=== PATIENT | female | born 1940 | race Caucasian/White ===

== ENCOUNTER → 2020-06-22 16:22 | Outpatient (BNVA) | payer MEDICARE, OTHER, SELFPAY | PROVIDERS: PCP Family Medicine; Referring Provider Family Medicine; Visit Provider Student in an Organized Health Care Education/Training Program | DX: L40.50 Arthropathic psoriasis, unspecified (principal); M70.61 Trochanteric bursitis, right hip; Z79.899 Other long term (current) drug therapy | CPT/HCPCS: 20610; 99213 ==

== ENCOUNTER → 2021-01-25 16:20 | Outpatient (BNVA) | payer MEDICARE, OTHER, SELFPAY | PROVIDERS: PCP Family Medicine; Visit Provider Student in an Organized Health Care Education/Training Program | DX: L40.50 Arthropathic psoriasis, unspecified (principal); M70.62 Trochanteric bursitis, left hip | CPT/HCPCS: 20610; 99212 ==

== ENCOUNTER → 2021-06-21 13:19 | Outpatient (BNVA) | payer OTHER, SELFPAY | PROVIDERS: PCP Family Medicine; Visit Provider Nurse Practitioner Family ==

== ENCOUNTER → 2021-11-07 10:06 | Outpatient (BNVA) | payer OTHER, SELFPAY | PROVIDERS: PCP Family Medicine; Visit Provider Nurse Practitioner Family ==

== ENCOUNTER → 2022-10-03 14:02 | Outpatient (BNVA) | payer OTHER, SELFPAY | PROVIDERS: Visit Provider Nurse Practitioner Family | DX: Z13.89 Encounter for screening for other disorder (principal) ==

== ENCOUNTER 2023-06-03 14:48 | Outpatient (AMB) | payer OTHER, SELFPAY ==
--- NOTE | 2023-06-03 15:18 | MHC.OFFVIS ---
Intake Vital Signs 06/03/23 15:30 Height 5 ft 5 in Weight 161 lb 2.526 oz BMI 26.8 BP 150/100 H Blood Pressure Location Lt brachial Position Sitting Pulse 86 Pulse Source Pulse Oximeter Temp 97.7 F Temp Source Skin Pulse Oximetry (%) 97 Oxygen Delivery Method Room Air Intake Visit Reasons: PSA Intake Note: Patient presents today for PsA follow up. Patient reports she has been at [facility] 3 times since her last visit in October. 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: No Accompanied by: Self / Same As Patient Allergies acetaminophen [Percocet] Allergy (Unknown, Verified 06/03/23 15:18) Hives oxycodone [Percocet] Allergy (Unknown, Verified 06/03/23 15:18) Hives penicillin V Allergy (Unknown, Verified 06/03/23 15:18) Hives sulfacetamide Allergy (Unknown, Verified 06/03/23 15:18) Hives Codeine Phosphate Allergy (Unknown, Uncoded 06/03/23 15:18) Hives Darvocet-N 50 Allergy (Unknown, Uncoded 06/03/23 15:18) Hives latex Allergy (Unknown, Uncoded 06/03/23 15:18) swelling Medication List - Last Reconciled 06/03/23 by Neville Us MD apixaban (Eliquis) 5 mg PO BID aspirin (Alfonzo Aspirin) 325 mg PO DAILY calcium carbonate (Calcium) 600 mg PO DAILY dronedarone (Multaq) 400 mg PO BID etanercept (Enbrel SureClick) 50 mg subcut QWEEK ezetimibe 10 mg PO DAILY ferrous sulfate (Iron (ferrous sulfate)) 325 mg PO DAILY leflunomide 20 mg PO DAILY levothyroxine 125 mcg PO DAILY losartan 50 mg PO DAILY meclizine 12.5 mg PO DAILY metoprolol tartrate 75 mg PO DAILY multivitamin 1 tab PO DAILY omeprazole 40 mg PO BID simvastatin 40 mg PO DAILY trazodone 50 mg PO BEDTIME vitamin B complex (B Complex-Vitamin B12 tablet) 1 tab PO DAILY HPI HPI Comments History of Present Illness Details The patient returns for evaluation of her psoriatic arthritis. She had been on leflunomide for years and has remained at 20 mg daily. The Enbrel was held last year while she had surgery for a skin cancer but it was restarted again this summer. She thinks it is helping to some degree. She has had further problems with poorly controlled blood pressure and atrial fibrillation for which she sees Cardiology up in [place]. She did have some lab work done last week. She does not think she has had any side effects with her medications. [facility] Medical History Atrial fibrillation Hyperlipidemia Hypertension Hypothyroidism Psoriatic arthritis Surgical History History of thyroid surgery Hx of appendectomy Hx of basal cell carcinoma excision Hx of hysterectomy Hx of tonsillectomy Knee joint replacement status Social History Alcohol intake: never Patient Tobacco Use Status: Former Tobacco user Years Smoked: 15 Review of Systems Const Details: Negative for appetite change, weight change, fever, chills, malaise and fatigue Eyes Details: Negative for vision change, dry eyes,headaches and dizziness ENT Details: Occasional episodes of vertigo, decreased hearing and tenderness in the right ear probably related to old head trauma. The symptoms seem stable.Negative for hearing change, oral ulcer, nose bleeds and oral dryness. Card Details: Occasional palpitation attributed to atrial fibrillation. Recently diuretic was added and losartan increased to control her blood pressure.Negative chest pain, edema and syncope Resp Details: Negative for SOB, cough and wheezing GI Details: Negative indigestion/heartburn, nausea, abdominal pain, bowel changes, diarrhea, constipation and bloody stool. Skin/Breast Details: Negative for itching, rash, hives, Raynaud's symptoms, sun sensitivity, and skin cancer Jalen/Lymph Details: Negative for excessive bruising or bleeding. Physical Exam Vital Signs: Last Vital Signs Temp 97.7 F 06/03/23 15:30 Pulse 86 06/03/23 15:30 BP 150/100 H 06/03/23 15:30 Pulse Ox 97 06/03/23 15:30 Oxygen Delivery Method Room Air 06/03/23 15:30 BMI result Body Mass Index 26.8 APPEARANCE: Patient in no acute distress EYES no redness, pupils equal and reactive to light, eyelids normal EXTREMITIES: No edema, no calf tenderness, normal peripheral pulses. SKIN: Depressed healed scar on the right tip of the nose. No evidence of active psoriasis noted on exam. JOINT EXAM:?? Cervical Spine: Some decrease in the range of lateral flexion and rotation but without pain; no tenderness. Thoracic Spine:? No scoliosis. No tenderness on palpation. Lumbar Spine:? Alignment normal.? Full range of motion without pain, no tenderness. Hands: LEFT? Normal pain-free range of motion. mild bony enlargement at the PIP and the IP joints. This is more prominent at the PIP regions. The MCPs have no tenderness or swelling. there is no sensory loss or thenar atrophy.. RIGHT: Normal range of motion. Bony enlargement Without tenderness of the PIP and DIP joints. There is some slight enlargement at the MCPs without tenderness. no thenar atrophy or sensory loss.. Wrists:? Normal pain-free range of motion without tenderness, swelling, increased warmth or erythema. Elbows: Normal pain-free range of motion without tenderness, swelling, increased warmth or erythema. Shoulders:? LEFT: Full range of motion without pain. No tenderness, weakness, swelling, increased warmth or erythema. RIGHT: Limited range of motion above 90 degrees with flexion and abduction. Able to complete internal rotation without pain. Previous rotator cuff surgery on this arm. No tenderness, swelling, increased warmth erythema. Hips: Left: Slight lateral and anterior pain with extremes of external rotation or abduction. No groin tenderness or mass. Right: Normal pain-free range of motion without tenderness. Hip bursa:.? No tenderness. Knees: LEFT: Normal pain-free range of motion without tenderness, swelling, increased warmth or erythema.? There is no effusion or crepitation. Healed arthroplasty scar. RIGHT: Normal pain-free range of motion without tenderness, swelling, increased warmth or erythema. No effusion noted. Positive for crepitus. Ankles: Normal pain-free range of motion without tenderness, swelling, increased warmth or erythema. Feet: LEFT: Normal pain-free range of motion. There is slight tenderness to palpation across MTPs. No swelling, increased warmth or erythema. RIGHT: Normal pain-free range of motion. Tenderness to palpation across MTPs. No swelling, increased warmth or erythema. 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 Enbrel: 09/2018- January 2022- on Hold due to concerning skin lesion. Leflunomide: December 2020 to present. Code(s): L40.50 - Arthropathic psoriasis, unspecified Plan She has some longstanding findings of osteoarthritis in the hands but no activity of the psoriatic arthritis is apparent on exam today. Additionally there is no psoriasis seen. She seems to be tolerating these medications and did feel the addition of Enbrel was helpful so I think it can be continued. We did review that it was immunosuppressive and that she should stop it event of infection. She had lab work done in late May that was okay so I think she is good to have another set done in September. I printed out some lab slips for her to take to the hospital in [place]. A follow-up at 4 months seems reasonable. Orders: Orders C Reactive Protein Today D84.821 - Immunodeficiency due to drugs, L40.50 - Arthropathic psoriasis, unspecified, Z79.899 - Other ocean transportation intermediary (current) drug therapy Aspartate Amino Transferase Today D84.821 - Immunodeficiency due to drugs, L40.50 - Arthropathic psoriasis, unspecified, Z79.899 - Other ocean transportation intermediary (current) drug therapy Complete Blood Count Auto Diff Today D84.821 - Immunodeficiency due to drugs, L40.50 - Arthropathic psoriasis, unspecified, Z79.899 - Other penitentiary (current) drug therapy Erythrocyte Sedimentation Rate Today D84.821 - Immunodeficiency due to drugs, L40.50 - Arthropathic psoriasis, unspecified, Z79.899 - Other ocean transportation intermediary (current) drug therapy Alanine Aminotransferase Today D84.821 - Immunodeficiency due to drugs, L40.50 - Arthropathic psoriasis, unspecified, Z79.899 - Other penitentiary (current) drug therapy Creatinine Today D84.821 - Immunodeficiency due to drugs, L40.50 - Arthropathic psoriasis, unspecified, Z79.899 - Other ocean transportation intermediary (current) drug therapy Coding Level of Care Code Est Pt Level 3 (19992) Diagnoses 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
[2023-06-03 15:30] VITALS: BP 150/100; PULSE 86; TEMP 36.5; O2SAT 97; BMI 26.8
== END 2023-06-03 15:55 | disposition home or self-care (01) ==
PROVIDERS: Visit Provider Internal Medicine Rheumatology
DX: D84.821 Immunodeficiency due to drugs (principal); Z79.899 Other long term (current) drug therapy; M19.041 Primary osteoarthritis, right hand; M19.042 Primary osteoarthritis, left hand; L40.50 Arthropathic psoriasis, unspecified
CPT/HCPCS: 99213

== ENCOUNTER → 2023-06-03 14:48 | Outpatient (BNVA) | payer OTHER, SELFPAY | PROVIDERS: Visit Provider Internal Medicine Rheumatology ==

== ENCOUNTER 2023-12-02 13:56 | Outpatient (AMB) | payer OTHER, MEDICAID, SELFPAY ==
--- NOTE | 2023-12-02 13:58 | A.OFFVIS_ITS ---
Intake Vital Signs 12/02/23 13:59 Height 5 ft 5 in Weight 167 lb 12.348 oz BMI 27.9 BP 158/80 H Blood Pressure Location Lt brachial Position Sitting Pulse 72 Pulse Source Pulse Oximeter Pulse Oximetry (%) 97 Oxygen Delivery Method Room Air Intake Visit Reasons: PSA/CM Intake Note: Patient last seen by Dr Us on 06/03/23 presents today for follow up and test results. Reports issues with high BP. Currently on 200mg of metoprolol. 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: No Accompanied by: Self / Same As Patient Allergies acetaminophen [Percocet] Allergy (Unknown, Verified 12/02/23 14:04) Hives oxycodone [Percocet] Allergy (Unknown, Verified 12/02/23 14:04) Hives penicillin V Allergy (Unknown, Verified 12/02/23 14:04) Hives sulfacetamide Allergy (Unknown, Verified 12/02/23 14:04) Hives Codeine Phosphate Allergy (Unknown, Uncoded 12/02/23 14:04) Hives Darvocet-N 50 Allergy (Unknown, Uncoded 12/02/23 14:04) Hives latex Allergy (Unknown, Uncoded 12/02/23 14:04) swelling Medication List - Last Reconciled 12/02/23 by Marques Hurd MD apixaban (Eliquis) 5 mg PO BID aspirin (Alfonzo Aspirin) 325 mg PO DAILY calcium carbonate (Calcium) 600 mg PO DAILY dronedarone (Multaq) 400 mg PO BID Enbrel SureClick (etanercept) 50 mg subcut QWEEK NS ezetimibe 10 mg PO DAILY ferrous sulfate (Iron (ferrous sulfate)) 325 mg PO DAILY furosemide 20 mg PO DAILY leflunomide 20 mg PO DAILY levothyroxine 125 mcg PO DAILY lisinopril 40 mg PO DAILY losartan 25 mg PO DAILY meclizine 12.5 mg PO DAILY metoprolol succinate ER 200 mg PO DAILY multivitamin 1 tab PO DAILY omeprazole 40 mg PO BID simvastatin 40 mg PO DAILY trazodone 50 mg PO BEDTIME vitamin B complex (B Complex-Vitamin B12 tablet) 1 tab PO DAILY HPI HPI Comments History of Present Illness Details 83-year-old female with psoriatic arthri tis returns for follow-up. This is her 1st visit with me. She used to follow-up with Dr. Us. She remains on Enbrel 50 mg weekly and leflunomide 20 mg daily. Stated that she went to the hospital November 07 with significantly elevated blood pressure, she also had a heart catheterization and was told there was no blockage. Since then her blood pressure has been significantly elevated and her antihypertensives have been increased. She gets intermittent lightheadedness. With regards to her arthritis it has been doing fairly well. No swollen painful joints. No psoriasis Most recent history by Dr. Us 06/2023: The patient returns for evaluation of her psoriatic arthritis. She had been on leflunomide for years and has remained at 20 mg daily. The Enbrel was held last year while she had surgery for a skin cancer but it was restarted again this summer. She thinks it is helping to some degree. She has had further problems with poorly controlled blood pressure and atrial fibrillation for which she sees Cardiology up in [place]. She did have some lab work done last week. She does not think she has had any side effects with her medications. [facility] Medical History Psoriatic arthritis Hyperlipidemia Hypothyroidism Hypertension Atrial fibrillation Surgical History Hx of basal cell carcinoma excision Knee joint replacement status History of thyroid surgery Hx of appendectomy Hx of tonsillectomy Hx of hysterectomy Social History Alcohol intake: never Patient Tobacco Use Status: Former Tobacco user Years Smoked: 15 Review of Systems Musc Denies arthralgias, Denies joint swelling and Denies stiffness Skin/Breast Denies rash Physical Exam Vital Signs: Last Vital Signs Pulse 72 12/02/23 13:59 BP 158/80 H 12/02/23 13:59 Pulse Ox 97 12/02/23 13:59 Oxygen Delivery Method Room Air 12/02/23 13:59 BMI result Body Mass Index 27.9 Const General: cooperative, healthy appearing and comfortable Nutritional Appearance: overweight Orientation/consciousness: patient oriented x3 Limitations: no limitations HEENT Head: Yes normocephalic and Yes atraumatic Mouth: moist mucous membranes Resp Effort & Inspection: normal respiratory effort and able to speak in complete sentences Auscultation: clear to auscultation bilaterally Skin General skin exam: no rashes or lesions noted Neuro General: patient oriented x3 Extrem Other: Significant osteoarthritic changes of both hands with prominent Jack's and Heberden's nodes. 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 Enbrel: 09/2018- January 2022- on Hold due to concerning skin lesion. Leflunomide: December 2020 to present. Enbrel restarted 2022 effective Code(s): L40.50 - Arthropathic psoriasis, unspecified Plan: This is an 83-year-old female with psoriatic arthritis who presents for follow- up. This is her 1st visit with me. She used to follow-up with Dr. Us. Patient is doing well on leflunomide 20 mg daily and Enbrel 50 mg weekly. Inflammatory markers are normal. Patient has been hypertensive lately. Leflunomide has been associated with hypertension. 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: Code(s): D84.821 - Immunodeficiency due to drugs; Z79.899 - Other termite inspector (current) drug therapy Plan: Monitor safety labs (3) Osteoarthritis of hands, bilateral: Code(s): M19.041 - Primary osteoarthritis, right hand; M19.042 - Primary osteoarthritis, left hand Qualifiers: Osteoarthritis type: primary Qualified Code(s): M19.041 - Primary osteoarthritis, right hand; M19.042 - Primary osteoarthritis, left hand Plan I spent 29 minutes reviewing patient's chart, evaluating patient, ordering diagnostic workup, counseling patient and documenting in the chart Orders: Orders Erythrocyte Sedimentation Rate 3 Months L40.50 - Arthropathic psoriasis, unspecified T Spot TB 3 Months Z11.7 - Encounter for testing for latent tuberculosis infection Complete Blood Count Auto Diff 3 Months L40.50 - Arthropathic psoriasis, unspecified Comprehensive Met. Panel 3 Months L40.50 - Arthropathic psoriasis, unspecified C Reactive Protein 3 Months L40.50 - Arthropathic psoriasis, unspecified Hepatitis A,B,C Profile 3 Months Z11.59 - Encounter for screening for other viral diseases Medications: New leflunomide 10 mg PO DAILY 90 tabs 0RF Discontinued leflunomide Discontinued Reason: Doctor's Order 20 mg PO DAILY 90 tabs 0RF L40.50 - Arthropathic psoriasis, unspecified Coding Level of Care Code Est Pt Level 4 (28580) Diagnoses Psoriatic arthritis L40.50 Immunodeficiency due to termite inspector drug therapy D84.821; Z79.899 Primary osteoarthritis of both hands M19.041; M19.042 Osteoarthritis type: primary
[2023-12-02 13:59] VITALS: BP 158/80; PULSE 72; O2SAT 97; BMI 27.9
== END 2023-12-02 14:16 | disposition home or self-care (01) ==
LOC: HO.RHE 13:56
PROVIDERS: Visit Provider Student in an Organized Health Care Education/Training Program
DX: L40.50 Arthropathic psoriasis, unspecified (principal); D84.821 Immunodeficiency due to drugs; Z79.899 Other long term (current) drug therapy; M19.041 Primary osteoarthritis, right hand; M19.042 Primary osteoarthritis, left hand
CPT/HCPCS: 99214

== ENCOUNTER → 2023-12-02 13:56 | Outpatient (BNVA) | payer OTHER, SELFPAY | PROVIDERS: Visit Provider Student in an Organized Health Care Education/Training Program ==

== ENCOUNTER 2024-06-16 14:52 | Outpatient (AMB) | payer OTHER, MEDICAID, SELFPAY ==
--- NOTE | 2024-06-16 15:00 | A.OFFVIS_ITS ---
Vital Signs 06/16/24 15:04 Height 5 ft 5 in Weight 171 lb 8.314 oz BMI 28.5 BP 132/70 Blood Pressure Location Lt brachial Position Sitting Pulse 80 Pulse Source Pulse Oximeter Pulse Oximetry (%) 94 Oxygen Delivery Method Room Air Intake Visit Reasons: PsA/CM Intake Note: Patient presents for PsA. Allergies acetaminophen [Percocet] Allergy (Unknown, Verified 06/16/24 15:03) Hives oxycodone [Percocet] Allergy (Unknown, Verified 06/16/24 15:03) Hives penicillin V Allergy (Unknown, Verified 06/16/24 15:03) Hives sulfacetamide Allergy (Unknown, Verified 06/16/24 15:03) Hives Codeine Phosphate Allergy (Unknown, Uncoded 12/02/23 14:04) Hives Darvocet-N 50 Allergy (Unknown, Uncoded 12/02/23 14:04) Hives latex Allergy (Unknown, Uncoded 12/02/23 14:04) swelling Medication List - Last Reconciled 06/16/24 by Marques Hurd MD apixaban (Eliquis) 5 mg PO BID aspirin (Alfonzo Aspirin) 325 mg PO DAILY calcium carbonate (Calcium 600) 600 mg PO DAILY dronedarone (Multaq) 400 mg PO BID Enbrel SureClick (etanercept) 50 mg subcut QWEEK NS ezetimibe 10 mg PO DAILY ferrous sulfate (Iron (ferrous sulfate)) 325 mg PO DAILY furosemide 20 mg PO DAILY leflunomide 10 mg PO DAILY levothyroxine 125 mcg PO DAILY lisinopril 40 mg PO DAILY losartan 25 mg PO DAILY meclizine 12.5 mg PO DAILY metoprolol succinate ER 200 mg PO DAILY multivitamin 1 tab PO DAILY omeprazole 40 mg PO BID simvastatin 40 mg PO DAILY trazodone 50 mg PO BEDTIME vitamin B complex (B Complex-Vitamin B12 tablet) 1 tab PO DAILY HPI Comments Details: 83-year-old female with psoriatic arthritis returns for follow-up. She remains on Enbrel 50 mg subcutaneously once weekly. Last visit we lowered her leflunomide from 20 mg daily to 10 mg daily. She states that her hands have become more achy. Especially her right 3rd and 4th PIP is. She has had tingling and numbness of her fingers for years but they have become worse over the last few months, generally worse at night. Has not had any significant infections recently. No active psoriasis rash PFSH Medical History (Updated 06/16/24 @ 15:35 by Marques Hurd MD) Psoriatic arthritis Hyperlipidemia Hypothyroidism Hypertension Atrial fibrillation Surgical History Hx of basal cell carcinoma excision Knee joint replacement status History of thyroid surgery Hx of appendectomy Hx of tonsillectomy Hx of hysterectomy Social History Alcohol intake: never Patient Tobacco Use Status: Former Tobacco user Years Smoked: 15 Review of Systems Musc Reports arthralgias, Reports joint swelling, Reports numbness, Reports stiffness and Reports tingling Neuro Reports numbness and Reports tingling Physical Exam Vital Signs: Last Vital Signs Pulse 80 06/16/24 15:04 BP 132/70 06/16/24 15:04 Pulse Ox 94 06/16/24 15:04 Oxygen Delivery Method Room Air 06/16/24 15:04 BMI result Body Mass Index 28.5 Const General: cooperative, healthy appearing and comfortable Nutritional Appearance: overweight Orientation/consciousness: patient oriented x3 Limitations: no limitations HEENT Head: Yes normocephalic and Yes atraumatic Mouth: moist mucous membranes Resp Effort & Inspection: normal respiratory effort and able to speak in complete sentences Auscultation: clear to auscultation bilaterally Skin General skin exam: no rashes or lesions noted Neuro General: patient oriented x3 Extrem Other: Significant osteoarthritic changes of both hands with prominent Jack's and Heberden's nodes. 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 Enbrel: 09/2018- January 2022- on Hold due to concerning skin lesion. Leflunomide: December 2020 to present. Enbrel restarted 2022 effective Code(s): L40.50 - Arthropathic psoriasis, unspecified Category: Medical Plan: This is an 83-year-old female with psoriatic arthritis who presents for follow- up. After last visit we lowered her leflunomide from 20 mg daily to 10 mg daily. Patient has been more achy in her hands recently. On exam she has swollen right 3rd and 4th PIPs. 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 I prescribed bilateral wrist splints. Patient will get EMG/NCV testing from her PCP at [place] (5) Immunization counseling: Code(s): Z71.85 - Encounter for immunization safety counseling Category: Medical Plan: Patient received flu vaccine and RSV vaccine for this season. Not interested in getting COVID booster Plan I spent 39 minutes reviewing patient's chart, evaluating patient, ordering diagnostic workup, counseling patient and documenting in the chart Orders: Orders NE electromyogram (EMG) Today R20.2 - Paresthesia of skin Comprehensive Met. Panel 6 Months L40.50 - Arthropathic psoriasis, unspecified Erythrocyte Sedimentation Rate 6 Months L40.50 - Arthropathic psoriasis, unspecified Complete Blood Count Auto Diff 6 Months L40.50 - Arthropathic psoriasis, unspecified C Reactive Protein 6 Months L40.50 - Arthropathic psoriasis, unspecified Medications: New [wrsit splint] Wear nightly & as much as possible throughout the day 2 ea 0RF G56.03 - Carpal tunnel syndrome, bilateral upper limbs Changed From leflunomide 10 mg PO DAILY 90 tabs 0RF L40.50 - Arthropathic psoriasis, unspecified To leflunomide 20 mg PO DAILY 90 tabs 1RF L40.50 - Arthropathic psoriasis, unspecified Refilled Enbrel SureClick (etanercept) 50 mg subcut QWEEK 4 mL 5RF NS L40.50 - Arthropathic psoriasis, unspecified Coding Level of Care Code Est Pt Level 5 (74432) Complex EM visit Add On G2211 Diagnoses Psoriatic arthritis L40.50 Immunodeficiency due to terminologist drug therapy D84.821; Z79.899 Primary osteoarthritis of both hands M19.041; M19.042 Osteoarthritis type: primary Paresthesia of hand, bilateral R20.2 Immunization counseling Z71.85
[2024-06-16 15:04] VITALS: BP 132/70; PULSE 80; O2SAT 94; BMI 28.5
== END 2024-06-16 15:26 | disposition home or self-care (01) ==
PROVIDERS: Visit Provider Student in an Organized Health Care Education/Training Program
DX: L40.50 Arthropathic psoriasis, unspecified (principal); D84.821 Immunodeficiency due to drugs; Z79.899 Other long term (current) drug therapy; M19.041 Primary osteoarthritis, right hand; M19.042 Primary osteoarthritis, left hand; R20.2 Paresthesia of skin; Z71.85 Encounter for immunization safety counseling
CPT/HCPCS: 99214

== ENCOUNTER → 2024-06-16 14:52 | Outpatient (BNVA) | payer OTHER, MEDICAID, SELFPAY | PROVIDERS: Visit Provider Student in an Organized Health Care Education/Training Program ==

== ENCOUNTER 2025-02-24 15:29 | Outpatient (AMB) | payer OTHER, MEDICAID, SELFPAY ==
[2025-02-24 15:34] VITALS: BP 142/80; PULSE 64; O2SAT 99; BMI 28.6
--- NOTE | 2025-02-24 15:34 | A.OFFVIS_ITS ---
Vital Signs 02/24/25 15:34 Height 5 ft 5 in Weight 172 lb BMI 28.6 BP 142/80 H Blood Pressure Location Lt brachial Position Sitting Pulse 64 Pulse Source Pulse Oximeter Pulse Oximetry (%) 99 Oxygen Delivery Method Room Air Intake Visit Reasons: PsA Intake Note: Patient last seen by Doctor Marques Hurd on 06/16/24. Presents for PsA follow up and test results. Patient now taking Metoprolol 75 mg, one 50 mg, and one 25 mg. Allergies acetaminophen (Percocet) Allergy (Unknown, Verified 02/24/25 15:40) Hives oxycodone (Percocet) Allergy (Unknown, Verified 02/24/25 15:40) Hives penicillin V Allergy (Unknown, Verified 02/24/25 15:40) Hives sulfacetamide Allergy (Unknown, Verified 02/24/25 15:40) Hives Codeine Phosphate Allergy (Unknown, Uncoded 02/24/25 15:40) Hives Darvocet-N 50 Allergy (Unknown, Uncoded 02/24/25 15:40) Hives latex Allergy (Unknown, Uncoded 02/24/25 15:40) swelling Medication List - Last Reconciled 02/24/25 by Beatris Cornell MD apixaban (Eliquis) 5 mg PO BID aspirin (Alfonzo Aspirin) 325 mg PO DAILY calcium carbonate (Calcium 600) 600 mg PO DAILY dronedarone (Multaq) 400 mg PO BID Enbrel SureClick (etanercept) 50 mg subcut QWEEK NS ezetimibe 10 mg PO DAILY ferrous sulfate (Iron (ferrous sulfate)) 325 mg PO DAILY furosemide 20 mg PO DAILY leflunomide 20 mg PO DAILY levothyroxine 125 mcg PO DAILY lisinopril 40 mg PO DAILY losartan 25 mg PO DAILY meclizine 12.5 mg PO DAILY metoprolol succinate ER 200 mg PO DAILY multivitamin 1 tab PO DAILY omeprazole 40 mg PO BID simvastatin 40 mg PO DAILY trazodone 50 mg PO BEDTIME vitamin B complex (B Complex-Vitamin B12 tablet) 1 tab PO DAILY [wrsit splint Wear nightly & as much as possible throughout the day] HPI Comments Details: Patient is an 84 y.o. female with HLD, HTN c/b CKD III, Hx of Basal cell carcinoma, hypothyroidism, Afib, polyarticular OA and PsA here today for follow up Interval History: Patient last seen 06/16/[address] Hurd. At that time, she was following up for her psoriatic arthritis on Enbrel 50 mg weekly, and leflunomide 10 mg daily. She notes that her hands have become more achy especially after decreasing her leflunomide from 20 to 10 mg. Because of this her leflunomide was increased back to 20 mg. Also an EMG was ordered to check for neuropathy Today, Did not notice any difference by going back up to the 20mg of the leflunomide Did not get the EMG: tired of doctors Never had PsO Still has aches in her hands Rheumatologic History: PsA 2018 Methotrexate: 09/2018-12/2019 stopped due to worsening renal function. Enbrel: 09/2018- January 2022- on Hold due to concerning skin lesion. Leflunomide: December 2020 to present. Enbrel restarted 2022 effective Current Rheumatology Medication(s): Enbrel 50mg SC weekly Leflunomide 20mg daily PFSH Medical History (Updated 06/16/24 @ 15:35 by Marques Hurd MD) Psoriatic arthritis Hyperlipidemia Hypothyroidism Hypertension Atrial fibrillation Surgical History Hx of basal cell carcinoma excision Knee joint replacement status History of thyroid surgery Hx of appendectomy Hx of tonsillectomy Hx of hysterectomy Social History Alcohol intake: never Patient Tobacco Use Status: Former Tobacco user Years Smoked: 15 Review of Systems Const Details: Review of Systems Constitutional: Denies fever, chills, weight loss ENT: Denies vision changes, eye pain or eye redness, dental caries, dry mouth GI: Denies nausea, vomiting, diarrhea, abdominal pain, change in BM Pulm: Denies SOB, BENNETT, hemoptysis, wheezing Cards: Denies chest pain, palpitations Skin: Denies Raynaud's, rash, nail changes, photosensitivity, FOREST PRODUCTS GATHERER: Denies headaches, weakness, paresthesias, recurrent falls MSK: as per HPI All other systems reviewed and are unremarkable except noted above Physical Exam Vital Signs: Last Vital Signs Pulse 64 02/24/25 15:34 BP 142/80 H 02/24/25 15:34 Pulse Ox 99 02/24/25 15:34 Oxygen Delivery Method Room Air 02/24/25 15:34 BMI result Body Mass Index 28.6 Vital signs reviewed Physical Examination CONSTITUITIONAL Patient alert and cooperative. Well appearing and in no apparent painful distress HEENT Conjunctiva and sclera clear. No lymphadenopathy. CHEST/RESPIRATORY SYSTEM Normal respiratory effort and able to speak in complete sentences. Clear to auscultation bilaterally. No crackles, rales, rhonchi, wheezes heard. CARDIAC SYSTEM Regular rate and rhythm. S1 and S2 heard no murmurs. Radial pulses intact bilaterally MSK Hands * Bilateral prominent Herbedens and carole's nodes with squarring of the first CMC of the left hand. * No synovitis noted Wrists * Right Wrist: Full ROM. 70 degrees of wrist flexion, 80 degrees of wrist extension. No swelling or TTP * Left Wrist: Full ROM. 70 degrees of wrist flexion, 80 degrees of wrist extension. No swelling or TTP Elbows * Right Elbow: Full ROM. No swelling or TTP. No TTP of the medial and lateral epicondyles * Left Elbow: Full ROM. No swelling or TTP. No TTP of the medial and lateral epicondyles Shoulders * Decreased ROM bilaterally. TTP of bilateral subacromial bursa Knees * Right knee: Full ROM. No swelling noted. No TTP of the knee joint lie or pes anserine bursa * Left knee: Full ROM. No swelling noted. No TTP of the knee joint lie or pes anserine bursa. * Crepitations felt bilaterally Ankles * Right ankle: Good ankle dorsiflexion and plantar flexion. No swelling. No TTP of the ankle joint * Left ankle: Good ankle dorsiflexion and plantar flexion. No swelling. No TTP of the ankle joint Feet * Right foot: Negative squeeze test * Left foot: Negative squeeze test Tender points? * No tenderness to palpation of the bilateral trapezius, supraspinatus, anterior costochondral junctions, bilateral suboccipital muscle insertions SKIN No rashes Results Reviewed Results Reviewed: [facility] results reviewed 01/18/25 Hepatitis panel NR Tb negative Hb 11.4 WBC 5.3 Plt 181 Cr 1.23 eGFR 44 AST/ALT 22/10 ESR 22 CRP <1 Assessment & Plan Assessment & Plan (1) Psoriatic arthritis: Comment: Methotrexate: 09/2018-12/2019 stopped due to worsening renal function. Enbrel: 09/2018- January 2022- on Hold due to concerning skin lesion. Leflunomide: December 2020 to present. Enbrel restarted 2022 effective Code(s): L40.50 - Arthropathic psoriasis, unspecified Category: Medical Plan: #PsA Patient is a an 84-year-old female with psoriatic arthritis here today for follow up her. Currently in remission with no evidence of synovitis on examination. There was no change in increasing the leflunomide from 10 mg to 20 mg and so I think we should tried to decrease her medication burden. We will stop leflunomide and then re-evaluate in 4 months Plan - Stop leflunomide - Continue Enbrel - RTC 4 months - Labs before visit: CBC, CMP, ESR, CRP (2) Polyarticular osteoarthritis: Code(s): M15.9 - Polyosteoarthritis, unspecified Plan: #Polyarticular OA Patient with polyarticular osteoarthritis with significant osteoarthritic changes to her hands. Including prominent Heberden and Carole's nodes. I think her achiness from her hands is likely secondary to her osteoarthritis. Recommended topical diclofenac as well as paraffin wax baths. Patient is unlikely to get the paraffin wax baths because it is not covered by insurance. But we will go ahead with the topical diclofenac Plan - Diclofenac 1% topical qid - Paraffin wax baths (3) Screening for osteoporosis: Code(s): Z13.820 - Encounter for screening for osteoporosis Plan: #Screening for osteoporosis Patient due for DEXA scan Will also check Vit D at next blood draw (4) Encounter for monitoring of etanercept therapy: Code(s): Z51.81 - Encounter for therapeutic drug level monitoring; Z79.620 - termite treater (current) use of immunosuppressive biologic Plan: #Long-term Use of TNF Inhibitors: Enbrel Discussed with the patient the benefits and risks of TNF inhibitors for the management of the rheumatic condition Benefits include reduce pain, maintenance of remission and reduction of flares as well as progression of the disease Risks include injection sites/infusion reactions, serious infections (such as bacterial infections, opportunistic infections), malignancy, delaminating syndromes, autoimmune phenomena, CHF exacerbations, palmar plantar psoriasis and cytopenias Recommended rotating injection sites, and holding medication during and for up to 1 week after resolution of a febrile illness or open skin wound Plan I spent 30 minutes reviewing the record and labs, taking a history, examining the patient, discussing the treatment plan, ordering diagnostic work up and documenting in the medical record Orders: Orders XR DEXA axial skeleton Today M81.0 - Age-related osteoporosis without current pathological fracture Complete Blood Count Auto Diff 4 Months L40.50 - Arthropathic psoriasis, unspecified Erythrocyte Sedimentation Rate 4 Months L40.50 - Arthropathic psoriasis, unspecified Comprehensive Met. Panel 4 Months L40.50 - Arthropathic psoriasis, unspecified C Reactive Protein 4 Months L40.50 - Arthropathic psoriasis, unspecified Medications: New diclofenac sodium 1% apply to bilateral hands 4 times a day 4 grams topical QID 100 grams 5RF M19.049 - Primary osteoarthritis, unspecified hand Refilled Enbrel SureClick (etanercept) 50 mg subcut QWEEK 4 mL 4RF NS L40.50 - Arthropathic psoriasis, unspecified Discontinued leflunomide Discontinued Reason: Doctor's Order 20 mg PO DAILY 90 tabs 0RF L40.50 - Arthropathic psoriasis, unspecified Coding Level of Care Code Est Pt Level 4 (77834) Complex EM visit Add On G2211 Diagnoses Psoriatic arthritis L40.50 Polyarticular osteoarthritis M15.9 Screening for osteoporosis Z13.820 Encounter for monitoring of etanercept therapy Z51.81; Z79.620
--- OUTSIDE RECORDS SUMMARY | 2025-02-24 18:19 | XMS_ITS | Encounter Summary ---
Author Organization [employer] Address [address] [place] [address] Care Team Providers Care Lead Housekeeper Name Role Phone Arik Nj Primary Care Provider [phone] Encounter Details Date Type Department Care Team (Late st Contact Info) Description 10/29/2024 Orders Only [facility] [address] [place] [address] Provider, Not In System Social History Tobacco Use Types Packs/Day Years Used Date Smoking Tobacco: Former Cigarettes 0.3 50 1 957 - 2007 Passive Smoke Exposure: Current Smokeless Tobacco: Never Alcohol Use Standard Drinks/Week Comments Not Currently 0 (1 standard drink = 0.6 oz pur e alcohol) Alcohol Answer Date Recorded How often do you have a drink containing alcohol ? 0 12/16/2023 How many drinks containing a lcohol do you have on a typical day when you are drinking? 0 12/16/2023 How often do you have six or more drinks on one occasion? 0 12/16/2023 Depression Answer Date Recorded Patient Health Questionnaire-9 Score 5 01/30/2024 Patient Health Questionnaire-9 Score 5 01/30/2024 Last PHQ-9: Questionnaire Data Not on file 0 01/30/2024 Housing Stability Answer Date Recorded What is your housing situation today? I have huey stearns 01/30/[address] you li ve. Do you have problems with any of the following? None of the above 01/30/2024 Food Insecurity Answer Date Recorded Within the past 12 months, y ou worried that your food would run out before you got money to buy more: Never True 01/30/2024 Within the past 12 months,th e food you bought just didn't last and you didn't have enough money to get more: Never True Transportation Answer Date Recorded In the past 12 months, has l ack of transportation kept you from medical appts, meetings, work or from getting things needed for daily living? No 01/30/2024 Intimate Partner Violence Answer Date R ecorded Within the last year, have y ou been afraid of your partner or ex-partner? 2 12/16/2023 Within the last year, have y ou been humiliated or emotionally abused in other ways by your partner or ex-partner? 2 Within the last year, have y ou been kicked, hit, slapped, or otherwise physically hurt by your partner or ex-partner? 2 12/16/2023 Within the last year, have y ou been raped or forced to have any kind of sexual activity by your partner or ex-partner? 2 12/16/2023 Utilities Answer Date Recorded In the past 12 months, has t he electric, gas, oil or water company threatened to shut off services in your home? No 01/30/2024 Depression Answer Date Recorded Patient Health Questionnaire-2 Score 0 01/30/2024 Internet Access Answer Date Recorded Internet Access Q1 Yes 05/11/2024 Internet Access Q2 Not on file 05/11/2024 Comments No Sex and Gender Information Value Date Recorded Sex Assigned at Female 01/04/2023 7:30 AM EDT Legal Sex Female 6:22 PM EDT Gender Identity Female 06/29/2022 6:22 PM EDT Sexual Orientation Choose not to disclose 2022 1:11 PM EDT documented as of this encounter Plan of Treatment Upcoming Encounters Date Type Department Care Team (Late st Contact Info) Description 04/23/2025 7:40 AM EDT Office Visit [facility] [address] [place] [phone] Arik Nj PA [address] [place] [phone] documented as of this encounter Procedures Procedure Name Priority Date/Time Associated Diagnosis Comments US LOWER EXTREMITY VENOUS BILATERAL Routine 10/15/2024 1:22 PM EST documented in this encounter Results * US Lower Extremity Venous Bilateral (10/15/2024 1:22 PM EST) Anatomical Region Laterality Modality Lower Extremities Ultrasound us Not In System Provider IMG US PROCEDURES Edited Result - Final documented in this encounter Visit Diagnoses Not on filedocumented in this encounter Additional Health Concerns Assessment Noted Time PHQ-9 Depression Total Score: 5 01/30/20 24 1:19 PM EDT documented as of this encounter Care Teams Lead Housekeeper Relationship Specialty Start Date End Date Arik Nj PA [address] [place] [phone] PCP - General Family Medicine 01/04/23 documented as of this encounter
== END 2025-02-24 16:17 | disposition home or self-care (01) ==
LOC: HO.RHE 15:30
PROVIDERS: Visit Provider Student in an Organized Health Care Education/Training Program
DX: L40.50 Arthropathic psoriasis, unspecified (principal); M15.9 Polyosteoarthritis, unspecified; Z13.820 Encounter for screening for osteoporosis; Z51.81 Encounter for therapeutic drug level monitoring; Z79.620 Long term (current) use of immunosuppressive biologic
CPT/HCPCS: 99214

== ENCOUNTER 2025-06-16 15:46 | Outpatient (AMB) | payer OTHER, MEDICAID, SELFPAY ==
--- NOTE | 2025-06-16 15:49 | A.OFFVIS_ITS ---
Vital Signs 06/16/25 15:52 Height 5 ft 5 in Weight 177 lb 14.609 oz BMI 29.6 BP 140/100 H Blood Pressure Location Lt brachial Position Sitting Pulse 64 Pulse Source Pulse Oximeter Pulse Oximetry (%) 96 Oxygen Delivery Method Room Air Intake Visit Reasons: PsA Intake Note: Patient presents for follow up. Allergies acetaminophen (Percocet) Allergy (Unknown, Verified 06/16/25 15:52) Hives oxycodone (Percocet) Allergy (Unknown, Verified 06/16/25 15:52) Hives penicillin V Allergy (Unknown, Verified 06/16/25 15:52) Hives sulfacetamide Allergy (Unknown, Verified 06/16/25 15:52) Hives Codeine Phosphate Allergy (Unknown, Uncoded 02/24/25 15:40) Hives Darvocet-N 50 Allergy (Unknown, Uncoded 02/24/25 15:40) Hives latex Allergy (Unknown, Uncoded 02/24/25 15:40) swelling Medication List - Last Reconciled 06/16/25 by Beatris Cornell MD apixaban (Eliquis) 5 mg PO BID aspirin (Alfonzo Aspirin) 325 mg PO DAILY calcium carbonate (Calcium 600) 600 mg PO DAILY diclofenac sodium 1% 4 grams topical QID dronedarone (Multaq) 400 mg PO BID Enbrel SureClick (etanercept) 50 mg subcut QWEEK NS ezetimibe 10 mg PO DAILY ferrous sulfate (Iron (ferrous sulfate)) 325 mg PO DAILY furosemide 20 mg PO DAILY leflunomide 10 mg PO DAILY levothyroxine 125 mcg PO DAILY lisinopril 40 mg PO DAILY losartan 25 mg PO DAILY meclizine 12.5 mg PO DAILY metoprolol succinate ER 200 mg PO DAILY multivitamin 1 tab PO DAILY omeprazole 40 mg PO BID simvastatin 40 mg PO DAILY trazodone 50 mg PO BEDTIME vitamin B complex (B Complex-Vitamin B12 tablet) 1 tab PO DAILY [wrsit splint Wear nightly & as much as possible throughout the day] HPI Comments Details: Patient is an 84 y.o. female with HLD, HTN c/b CKD III, Hx of Basal cell carcinoma, hypothyroidism, Afib, polyarticular OA and PsA here today for follow up Interval History: Patient last seen 02/24/25 with me - On Enbrel 50mg SC and leflunomide 20mg daily - Did not notice any difference by going back up to the 20mg of the leflunomide - Did not get the EMG: tired of doctors - Never had PsO - Still has aches in her hands - Leflunomide stopped - sx attributed to OA Today - On Enbrel 50mg SC weekly - Had worsening joing pain off the leflunomide and was restarted on 10mg - Reports improvement and wanted to increase dose - Had an episode of bilateral leg swelling that improved with compression stockings - Unable to get paraffin wax bath do to insurance not paying for it Rheumatologic History: PsA 2018 Methotrexate: 09/2018-12/2019 stopped due to worsening renal function. Enbrel: 09/2018- January 2022- on Hold due to concerning skin lesion. Leflunomide: December 2020 to present. Enbrel restarted 2022 effective Current Rheumatology Medication(s): Enbrel 50mg SC weekly Leflunomide 10mg PFSH Medical History (Updated 06/16/24 @ 15:35 by Marques Hurd MD) Psoriatic arthritis Hyperlipidemia Hypothyroidism Hypertension Atrial fibrillation Surgical History Hx of basal cell carcinoma excision Knee joint replacement status History of thyroid surgery Hx of appendectomy Hx of tonsillectomy Hx of hysterectomy Social History Alcohol intake: never Patient Tobacco Use Status: Former Tobacco user Years Smoked: 15 Review of Systems Const Details: Review of Systems Constitutional: Denies fever, chills, weight loss ENT: Denies vision changes, eye pain or eye redness, dental caries, dry mouth GI: Denies nausea, vomiting, diarrhea, abdominal pain, change in BM Pulm: Denies SOB, BENNETT, hemoptysis, wheezing Cards: Denies chest pain, palpitations Skin: Denies Raynaud's, rash, nail changes, photosensitivity, OUTSIDE OPERATOR: Denies headaches, weakness, paresthesias, recurrent falls MSK: as per HPI All other systems reviewed and are unremarkable except noted above Physical Exam Exam Exam: Vital signs reviewed Physical Examination CONSTITUITIONAL Patient alert and cooperative. Well appearing and in no apparent painful distress MSK Hands * Right Hand: Able to make a fist. No swelling or tenderness to palpation of the MCPs, PIPs or DIPs. * Left Hand: Able to make a fist. No swelling or tenderness to palpation of the MCPs, PIPs or DIPs. * Prominent Herbedens and Bouchards nodes noted bilaterally Wrists * Right Wrist: Full ROM to flexion and extension. No swelling or TTP * Left Wrist: Full ROM to flexion and extension. No swelling or TTP Elbows * Right Elbow: Full ROM. No swelling or TTP. No TTP of the medial epicondyle. No TTP of the lateral epicondyle * Left Elbow: Full ROM. No swelling or TTP. No TTP of the medial epicondyle. No TTP of the lateral epicondyle Shoulders * Right shoulder: Decreased ROM. No swelling noted. No TTP of the AC joint. TTP of the subacromial bursa. No TTP of the posterior shoulder * Left shoulder: Decreased ROM. No swelling noted. No TTP of the AC joint. No TTP of the subacromial bursa. No TTP of the posterior shoulder Knees * Right knee: Full ROM. No swelling noted. No TTP of the knee joint line. No TTP of pes anserine bursa * Left knee: Full ROM. No swelling noted. No TTP of the knee joint line. No TTP of pes anserine bursa. * Crepitations felt bilaterally Ankles * Right ankle: Good ankle dorsiflexion and plantar flexion. No swelling. No TTP of the ankle joint * Left ankle: Good ankle dorsiflexion and plantar flexion. No swelling. No TTP of the ankle joint Feet * Right foot: Negative squeeze test * Left foot: Negative squeeze test Tender points? * No tenderness to palpation of the bilateral trapezius, supraspinatus, anterior costochondral junctions, bilateral suboccipital muscle insertions SKIN No rashes Vital Signs: Last Vital Signs Pulse 64 06/16/25 15:52 BP 140/100 H 06/16/25 15:52 Pulse Ox 96 06/16/25 15:52 Oxygen Delivery Method Room Air 06/16/25 15:52 BMI result Body Mass Index 29.6 Results Reviewed Results Reviewed: 05/26/25 [facility] WBC 6.0 Hb 11.9 Plt 207 BUN 15 Cr 1.27 eGFR 42 AST 22 ALT 9 Hepatitis B Negative Hep C Non reactive Tb Negative ESR 25 CRP 13 H Assessment & Plan Assessment & Plan (1) Psoriatic arthritis: Comment: Methotrexate: 09/2018-12/2019 stopped due to worsening renal function. Enbrel: 09/2018- January 2022- on Hold due to concerning skin lesion. Leflunomide: December 2020 to present. Enbrel restarted 2022 effective Code(s): L40.50 - Arthropathic psoriasis, unspecified Category: Medical Plan: #PsA Patient is a an 84-year-old female with psoriatic arthritis here today for follow up her. Currently in remission with no evidence of synovitis on examination. Had return of sx after dc leflunomide Restarted at 10mg and wants to go back to 20mg Plan - Leflunomide 20mg daily - Continue Enbrel - RTC 4 months - Labs before visit: CBC, CMP, ESR, CRP (2) Polyarticular osteoarthritis: Code(s): M15.9 - Polyosteoarthritis, unspecified Plan: #Polyarticular OA Patient with polyarticular osteoarthritis with significant osteoarthritic changes to her hands. Including prominent Heberden and Jack's nodes. I think her achiness from her hands is likely secondary to her osteoarthritis. Recommended topical diclofenac as well as paraffin wax baths. Did not get the paraffin baths. Recommedning warm water baths. Continue topical diclofenac Plan - Diclofenac 1% topical qid - Warm water baths (3) Screening for osteoporosis: Code(s): Z13.820 - Encounter for screening for osteoporosis Plan: #Screening for osteoporosis Patient due for DEXA scan Will also check Vit D at next blood draw (4) Encounter for monitoring of etanercept therapy: Code(s): Z51.81 - Encounter for therapeutic drug level monitoring; Z79.620 - care home (current) use of immunosuppressive biologic Plan: #Long-term Use of TNF Inhibitors: Enbrel Discussed with the patient the benefits and risks of TNF inhibitors for the management of the rheumatic condition Benefits include reduce pain, maintenance of remission and reduction of flares as well as progression of the disease Risks include injection sites/infusion reactions, serious infections (such as bacterial infections, opportunistic infections), malignancy, delaminating syndromes, autoimmune phenomena, CHF exacerbations, palmar plantar psoriasis and cytopenias Recommended rotating injection sites, and holding medication during and for up to 1 week after resolution of a febrile illness or open skin wound (5) Encounter for monitoring leflunomide therapy: Code(s): Z51.81 - Encounter for therapeutic drug level monitoring; Z79.69 - buttermaker continuous churn (current) use of other immunomodulators and immunosuppressants Plan: #Long-term leflunomide Discussed with patient the benefits and risks of leflunomide for managing the rheumatic condition Benefits include: - Reduced pain, maintenance of remission and reduction of flares Risks include: - GI upset especially diarrhea, skin rash, cytopenias, hepatotoxicity, weight loss, neuropathy Leflunomide is highly teratogenic. Has a very long half-life. Needs cholestyramine washout if there is desire for Initiation: CBC, BMP, LFTs, hepatitis-B and C serologies every 2-4 weeks for 3 months Monitoring: CBC, BMP, LFTs, hepatitis B and C serologies Plan I spent 30 minutes reviewing the record and labs, taking a history, examining the patient, discussing the treatment plan, ordering diagnostic work up and documenting in the medical record Medications: New leflunomide 20 mg PO DAILY 90 tabs 1RF L40.50 - Arthropathic psoriasis, unspecified Refilled diclofenac sodium 1% apply to bilateral hands 4 times a day 4 grams topical QID 100 grams 5RF M19.049 - Primary osteoarthritis, unspecified hand Discontinued leflunomide Discontinued Reason: Doctor's Order 10 mg PO DAILY 90 tabs 1RF L40.50 - Arthropathic psoriasis, unspecified Coding Level of Care Code Est Pt Level 4 (00200) Complex EM visit Add On G2211 Diagnoses Psoriatic arthritis L40.50 Polyarticular osteoarthritis M15.9 Screening for osteoporosis Z13.820 Encounter for monitoring of etanercept therapy Z51.81; Z79.620 Encounter for monitoring leflunomide therapy Z51.81; Z79.69
[2025-06-16 15:52] VITALS: BP 140/100; PULSE 64; O2SAT 96; BMI 29.6
--- OUTSIDE RECORDS SUMMARY | 2025-06-16 19:05 | XMS_ITS | Encounter Summary ---
Author Organization [employer] [facility] Address [address] [place] [address] Care Team Providers Care Bellman Name Role Phone Arik Nj Primary Care Provider [phone] Reason for Visit * Reason Comments Med Refill Encounter Details Date Type Department Care Team (Late st Contact Info) Description 08/05/[address] [phone] Teagan Fonseca FNP Social History Tobacco Use Types Packs/Day Years Used Date Smoking Tobacco: Never Assessed Comments Unknown Sex and Gender Information Value Date Recorded Sex Assigned at Female 01/04/2023 7:30 AM EDT Legal Sex Female 6:22 PM EDT Gender Identity Female 06/29/2022 6:22 PM EDT Sexual Orientation Choose not to disclose 2022 1:11 PM EDT documented as of this encounter Miscellaneous Notes * Telephone Encounter - Trinidad Siegel - 08/08/2022 10:14 AM EST Patient did not want a refill at this time documented in this encounter Plan of Treatment Upcoming Encounters Date Type Department Care Team (Late st Contact Info) Description 08/02/2025 7:40 AM EST Office Visit [address] [phone] Arik Nj PA [address] [place] [address] documented as of this encounter Visit Diagnoses Not on filedocumented in this encounter Care Teams Bellman Relationship Specialty Start Date End Date Arik Nj PA [address] [place] [address] PCP - General Family Medicine 01/04/23 documented as of this encounter
--- OUTSIDE RECORDS SUMMARY | 2025-06-16 19:05 | XMS_ITS | Encounter Summary ---
Author Organization [employer] Address [address] [facility] 7t [place] [address] Care Team Providers Care Disaster Or Damage Control Specialist Name Role Phone Arik Nj Primary Care Provider Encounter Details Date Type Department Care Team (Late st Contact Info) Description 08/11/2024 Orders Only [facility] [address] [place] [address] Provider, Not In System Social [...] your housing situation today? I have huey sing 01/30/[address] you li [...] Description 08/02/2025 7:40 AM EST Office Visit [facility] [address] [place] [phone] Arik Nj PA [address] [place] [address] documented as of this encounter Procedures Procedure Name Priority Date/Time Associated Diagnosis Comments VASC US LOWER EXTREMITY VENOUS DUPLEX BILATERAL Routine 07/23/2024 2:00 PM EST documented in this encounter Results * VASC US Lower Extremity Venous Duplex Bilateral (07/23/2024 2:00 PM EST) us Not In System Provider CV VASCULAR PROCEDURES Ed ited Result - Final documented in this encounter Visit Diagnoses Not on filedocumented in this encounter Additional Health Concerns Assessment Noted Time PHQ-9 Depression Total Score: 5 01/30/20 24 1:19 PM EDT documented as of this encounter Care Teams Disaster Or Damage Control Specialist Relationship Specialty Start Date End Date Arik Nj PA [address] [place] [address] PCP - General Family Medicine 01/04/23 documented as of this encounter
--- OUTSIDE RECORDS SUMMARY | 2025-06-16 19:05 | XMS_ITS | Encounter Summary ---
Author Organization [employer] Address 75 [facility] 7t [place] [address] Care Team Providers Care Composite Science Teacher Name Role Phone Arik Nj Primary Care Provider [phone] Encounter Details Date Type Department Care Team (Late st Contact Info) Description 05/18/2024 Orders Only [facility] [address] [place] [address] Provider, Not In System Social History Tobacco Use Types Packs/Day Years Used Date Smoking Tobacco: Former Cigarettes 0.3 50 1 757 - 2007 Passive Smoke Exposure: Current Smokeless [...] Description 08/02/2025 7:40 AM EST Office Visit [facility] [address] [place] [phone] Arik Nj PA [address] [place] [address] documented as of this encounter Procedures Procedure Name Priority Date/Time Associated Diagnosis Comments VASC US LOWER EXTREMITY VENOUS DUPLEX BILATERAL Routine 05/18/2024 8:28 AM EDT VASC US LOWER EXTREMITY ARTERIAL DUPLEX BILATERAL Routine 05/12/2024 8:32 AM EDT VASC US LOWER EXTREMITY ARTERIAL DOPPLER LIMITED Routine 05/12/2024 8:31 AM EDT documented in this encounter Results * VASC US Lower Extremity Venous Duplex Bilateral (05/18/2024 8:28 AM EDT) us Not In System Provider CV VASCULAR PROCEDURES Fi nal Result * VASC US Lower Extremity Arterial Duplex Bilateral (05/12/2024 8:32 AM EDT) us Not In System Provider CV VASCULAR PROCEDURES Fi nal Result * Vascular US lower extremity arterial doppler limited (05/12/2024 8:31 AM EDT) us Not In System Provider CV VASCULAR PROCEDURES Fi nal Result documented in this encounter Visit Diagnoses Not on filedocumented in this encounter Additional Health Concerns Assessment Noted Time PHQ-9 Depression Total Score: 5 01/30/20 24 1:19 PM EDT documented as of this encounter Care Teams Composite Science Teacher Relationship Specialty Start Date End Date Arik Nj PA [address] [place] [phone] PCP - General Family Medicine 01/04/23 documented as of this encounter
--- OUTSIDE RECORDS SUMMARY | 2025-06-16 19:05 | XMS_ITS | Encounter Summary ---
Author Organization [employer] Address 75 [facility] 7 [place] [address] Care Team Providers Care Ap Processor Name Role Phone Arik Nj Primary Care Provider [phone] Encounter Details Date Type Department Care Team (Late st Contact Info) Description 10/22/2024 Orders Only [facility] [address] [place] [phone] Davian Saunders PA-C [address] [place] [address] Social History Tobacco Use Types Packs/Day Years [...] the past 12 months, has t he [employer], gas, oil or water [employer] threatened to shut off services in your [...] Description 08/02/2025 7:40 AM EST [facility] [address] [place] [phone] Arik Nj PA [address] [place], [place] [phone] documented as of this encounter Visit Diagnoses Not on filedocumented in this encounter Additional Health Concerns Assessment Noted Time PHQ-9 Depression Total Score: 5 01/30/20 24 1:19 PM EDT documented as of this encounter Care Teams Ap Processor Relationship Specialty Start Date End Date Arik Nj PA [address] [place] [phone] PCP - General Family Medicine 01/04/23 documented as of this encounter
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
--- OUTSIDE RECORDS SUMMARY | 2025-06-16 19:05 | XMS_ITS | Clinical Summary ---
Author Organization [facility] Address [address] [address] Phone Care Team Providers Care Central Supply Nurse Name Role Phone Arik Nj Primary Care Provider [phone] Allergies Active Allergy Reactions Criticality Noted Date Comments Fluorouracil-Adhesive Bandage 2023 Medications No known medications Encounters Date Type Department Care Team Description 05/10/2025 Transcribe Orders Virtual Department [address] [place] [address] Arik Nj PA Nonintractable headache, unspecified chronicity pattern, unspecified headache type (Primary Dx) from Last 3 Months Social History Tobacco Use Types Packs/Day Years Used Date Smoking Tobacco: Never Assessed Education Answer Date Recorded Are you interested in more education? Not on afllon e 12/28/2022 Are you concerned about learning? [...] on file Sexual Orientation Not on file Plan of Treatment Health Maintenance Due Date Last Done Comments DEPRESSION SCREENING 1953 OSTEOPOROSIS SCREENING INITIAL (ONE-TIME) 2006 RSV VACCINE (1 - 1-dose 75+ series) 2016 PNEUMOCOCCAL VACCINES (50+ years) (2 of 2 - PCV) 03/06/2023 03/06/2022, 03/22/2011 INFLUENZA VACCINE (#1) 2025 , 04/25/2023, 05/02/2022, Additional history exists COVID-19 VACCINE (2024- season) 2025 Adult Td,Tdap Booster 05/25/2030 05/25/2020, 011 ZOSTER VACCINES Completed 09/04/2020, 06/23/2020 HEPATITIS A VACCINES Aged Out No long er eligible based on patient's age to complete this topic HIB VACCINES Aged Out No longer eligi ble based on patient's age to complete this topic MENINGOCOCCAL VACCINES (ACWY) Aged Out No longer eligible based on patient's age to complete this topic MENINGOCOCCAL VACCINES (B) Aged Out N o longer eligible based on patient's age to complete this topic Medical Devices Not on file Insurance MEDICARE PART A & B [facility] FULL MEDICARE REPLACEMENT MEDICARE PART A & B [facility] FULL MEDICARE REPLACEMENT MEDICARE PART A & B NET FULL MEDICARE PART A & B FULL MEDICARE PART A & B [facility] FULL MEDICARE REPLACEMENT MEDICARE PART A & B HEALTH SAFETY NET FULL MEDICARE PART A & B HEALTH SAFETY NET FULL Member Subscriber Plan / Payer (Ef fective 2019-Present) Name:Daisy Ahumada Relation to Subscriber:Self Name:Rosette Ahumadaanne Payer ID:Not on file Group ID:Not on file Type:Medicaid Address: [address] MEDICARE REPLACEMENT MEDICARE PART A & B [facility] FULL MEDICARE REPLACEMENT MEDICARE PART A & B HEALTH SAFETY NET FULL MEDICARE REPLACEMENT Care Teams Central Supply Nurse Relationship Specialty Start Date End Date Arik Nj PA [address] [place] [address] PCP - General 06/05/24 Additional Source Comments The information contained in this document represents components of the legal health record. It is not the complete legal health record.[facility]
--- OUTSIDE RECORDS SUMMARY | 2025-06-16 19:05 | XMS_ITS | Encounter Summary ---
Author Organization [employer] Address [address] [facility] 7 [place] [address] Care Team Providers Care Crime Analyst Name Role Phone Arik Nj Primary Care Provider [phone] Encounter Details Date Type Department Care Team ([facility] st Contact Info) Description 05/25/2025 Telephone [facility] [address] [place] [phone] Arik Nj PA [address] [place] [address] Social History Tobacco Use Types Packs/Day Years [...] the past 12 months, has t he [employer], gas, oil or water company threatened to shut off services in your home? No 01/30/2024 Depression Answer Date Recorded Patient Health Questionnaire-2 Score 0 01/21/2025 Internet Access Answer Date Recorded Internet Access [...] encounter Miscellaneous Notes * Telephone Encounter - Naz Colbert - 05/25/2025 12:32 PM EDT Sent referral to [facility] * Telephone Encounter - Barb Cheek - 05/25/2025 10:13 AM EDT Patient is calling because she needs to be referred to another chiropractors office because the oneshe was referred to does not accept her insurance documented in this encounter Plan of Treatment Upcoming Encounters Date Type Department Care Team (Late st Contact Info) Description 08/02/2025 7:40 AM EST Office Visit [facility] [address] [place] [phone] Arik Nj PA [address] [place] [phone] documented as of this encounter Visit Diagnoses Not on filedocumented in this encounter Additional Health Concerns Assessment Noted Time PHQ-9 Depression Total Score: 5 01/30/20 24 1:19 PM EDT documented as of this encounter Care Teams Crime Analyst Relationship Specialty Start Date End Date Arik Nj PA [address] [place] [phone] PCP - General Family Medicine 01/04/23 documented as of this encounter
--- OUTSIDE RECORDS SUMMARY | 2025-06-16 19:05 | XMS_ITS | Encounter Summary ---
Author Organization [employer] Address 75 [facility] 7t [place] [address] Care Team Providers Care Mlt Name Role Phone Arik Nj Primary Care Provider [phone] Encounter Details Date Type Department Care Team (Late st Contact Info) Description 10/29/2024 Orders Only [facility] [address] [place] [address] Provider, Not In System Social History Tobacco Use Types Packs/Day Years Used Date Smoking Tobacco: Former Cigarettes 0.3 50 1 797 - 2007 Passive Smoke Exposure: Current Smokeless [...] Description 08/02/2025 7:40 AM EST Office Visit [facility] [address] [place] [phone] Arik Nj PA [address] [place] [phone] documented as of this encounter Procedures Procedure [...] documented as of this encounter Care Teams Mlt Relationship Specialty Start Date End Date Arik Nj PA [address] [place] [phone] PCP - General Family Medicine 01/04/23 documented as of this encounter
--- OUTSIDE RECORDS SUMMARY | 2025-06-16 19:05 | XMS_ITS | Encounter Summary ---
Author Organization [facility] Address [address] [place] [address] Phone Care Team Providers Care Rubber Insulator Name Role Phone Arik Nj Primary Care Provider [phone] Encounter Details Date Type Department Care Team (Latest Contact Info) Description 05/10/2025 Transcribe Orders Virtual Department [address] [place] [address] Arik Nj PA [address] [place] [address] Nonintractable headache, unspecified chronicity pattern, unspecified headache type (Primary Dx) Social History Tobacco Use Types Packs/Day Years [...] as of this encounter Plan of Treatment Not on file documented as of this encounter Visit Diagnoses Diagnosis Nonintractable headache, unspecified chronicity pattern, unspecified headache type- Primary documented in this encounter Care Teams Rubber Insulator Relationship Specialty Start Date End Date Arik Nj PA [address] [place] [address] PCP - General 10/4/24 documented as of this encounter Additional Source Comments The information contained in this document represents components of the legal health record. It is not the complete legal health record.[facility]
--- OUTSIDE RECORDS SUMMARY | 2025-06-16 19:05 | XMS_ITS | Encounter Summary ---
Author Organization [facility] Address [address] [place] [address] Phone Care Team Providers Care Admitting Representative Name Role Phone Jeannette Clinton MD Primary Care Provider [phone] Arki Nj Primary Care Provider [phone] Encounter Details Date Type Department Care Team (Latest Contact Info) Description 04/03/2024 Transcribe Orders Virtual Department [address] [place] [address] Arik Nj PA [address] [place] [address] Screening for osteoporosis (Primary Dx) Social History Tobacco Use Types [...] as of this encounter Visit Diagnoses Diagnosis Screening for osteoporosis- Primary Special screening for osteoporosis documented in this encounter Care Teams Admitting Representative Relationship Specialty Start Date End Date Jeannette Clinton MD [address] [place] [address] [email or web address] PCP - General Family Medicine 09/14/22 4 Arik Nj PA [address] [place] [phone] PCP - General 06/05/24 documented as of this encounter Additional Source Comments The information contained in this document represents components of the legal health record. It is not the complete legal health record.[facility]
--- OUTSIDE RECORDS SUMMARY | 2025-06-16 19:05 | XMS_ITS | Clinical Summary ---
Author Organization [employer] Address [address] [facility] [address] [place] [address] Care Team Providers Care Casing Trimmer Name Role Phone Arik Nj Primary Care Provider [phone] Allergies Active Allergy Reactions Criticality Noted Date Comments Codeine Hives,Rash Medium 10/16/2017 Hives Hydrocodone Hives Medium 02/15/2016 Latex Shortness of breath High 10/16/2017 Oxycodone Hives Medium 02/15/2016 Oxycodone-Acetaminophen 01/04/2023 Penicillins Hives Medium 10/16/2017 Hives Propoxyphene Hives Medium 01/04/2023 Hives Sulfa Antibiotics 10/16/2017 Medications Enbrel SureClick 50 MG/ML injection inject 50 milligram subcutaneously every week 023 Active leflunomide (Arava) 20 MG tablet Take 20 mg by mouth in the morning. 023 Active aspirin 81 MG EC tablet daily. 021 Active Multaq 400 MG tablet Take 400 mg by mouth with breakfast and with evening meal. 023 Active albuterol 108 (90 Base) MCG/ACT inhaler inhale 2 puffs by mouth and INTO THE LUNGS every 4 to 6 hours if needed for wheezing 8.5 g 3 024 Active metoprolol succinate XL (Toprol-XL) 50 MG 24 hr tablet Take 1 tablet (50 mg) by mouth Once per day. Take with 25mg tab for tdd 75mg. Do not crush or chew. 90 tablet 3 025 2025 Active Diclofenac Sodium 1 % gel Apply 4 g topically if needed in the morning, at noon, in the evening, and at bedtime (pain). 150 g 2 025 Active cyanocobalamin (Vitamin B-12) 1000 MCG tabletIndication s:Low vitamin B12 level Take 1 tablet (1,000 mcg) by mouth Once per day. 90 tablet 3 025 2025 Active LORazepam (Ativan) 0.5 MG tabletIndication s:Claustrophobia Take 1 tablet (0.5mg) by mouth 1 hour before MRI if needed for anxiety. May take second tab 20-30 minutes before MRI if needed for ongoing anxiety. 2 tablet 025 Active furosemide (Lasix) 20 MG tablet TAKE 1 TABLET(S) BY MOUTH 1 TIMES PER DAY *NEW PRESCRIPTION REQUEST* 90 tablet 025 Active omeprazole (PriLOSEC) [address] capsuleIndicatio ns:Gastroesophag eal reflux disease without esophagitis TAKE 1 CAPSULE(S) BY MOUTH 2 TIMES PER DAY *NEW PRESCRIPTION REQUEST* 180 capsule 025 Active amLODIPine (Norvasc) 2.5 MG tabletIndication s:Primary hypertension TAKE 1 TABLET(S) BY MOUTH 1 TIMES PER DAY *NEW PRESCRIPTION REQUEST* 90 tablet 025 Active losartan (Cozaar) 100 MG tabletIndication s:Hypertensive kidney disease with stage 3a chronic kidney disease (CMS/HCC) (HCC) TAKE 1 TABLET(S) BY MOUTH 1 TIMES PER DAY *NEW PRESCRIPTION REQUEST* 90 tablet 3 025 Active levothyroxine (Synthroid, Levoxyl) 125 MCG tabletIndication s:Hypothyroidism , unspecified type TAKE 1 TABLET(S) BY MOUTH 1 TIMES PER DAY *NEW PRESCRIPTION REQUEST* 90 tablet 025 Active meclizine (Antivert) 12.5 MG tabletIndication s:Vertigo TAKE 1 TABLET(S) BY MOUTH 1 TIMES PER DAY *NEW PRESCRIPTION REQUEST* 90 tablet 025 Active ezetimibe (Zetia) 10 MG tabletIndication s:Hyperlipidemia , unspecified hyperlipidemia type TAKE 1 TABLET(S) BY MOUTH 1 TIMES PER DAY *NEW PRESCRIPTION REQUEST* 90 tablet 025 Active rosuvastatin (Crestor) 40 MG tabletIndication s:Mixed hyperlipidemia TAKE 1 TABLET(S) BY MOUTH 1 TIMES PER DAY *NEW PRESCRIPTION REQUEST* 90 tablet 3 025 Active traZODone (Desyrel) 50 MG tabletIndication s:Insomnia, unspecified type TAKE 1 TABLET(S) BY MOUTH 1 TIMES PER DAY *NEW PRESCRIPTION REQUEST* 90 tablet 3 025 Active Jardiance 10 MGIndications:Hy pertensive kidney disease with stage 3a chronic kidney disease (CMS/HCC) ([facility]) TAKE 1 TABLET(S) BY MOUTH 1 TIMES PER DAY *NEW PRESCRIPTION REQUEST* 90 tablet 3 025 Active apixaban (Eliquis) 5 MG tabletIndication s:Atrial fibrillation, unspecified type (CMS/HCC) ([facility]) Take 1 tablet (5 mg) by mouth 2 times daily. 180 tablet 3 Active metoprolol succinate XL (Toprol XL) 25 MG 24 hr tablet Take 1 tablet (25 mg) by mouth Once per day. Take with 50mg tab for tdd 75mg. Do not crush or chew. 90 tablet 3 025 2025 Active traZODone (Desyrel) 50 MG tabletIndication s:Insomnia, unspecified type take 1 tablet by mouth at bedtime 90 tablet 3 024 2024 Discontinued furosemide (Lasix) 20 MG tablet take 1 tablet by mouth every morning 90 tablet 3 024 2024 Discontinued metoprolol succinate XL (Toprol XL) 25 MG 24 hr tablet Take 1 tablet (25 mg) by mouth Once per day. Take with 50mg tab for tdd 75mg. Do not crush or chew. 90 tablet 3 025 2024 Discontinued(R eorder (will not trigger notification to Pharmacy)) amLODIPine (Norvasc) 2.5 MG tabletIndication s:Primary hypertension Take 1 tablet (2.5 mg) by mouth Once per day. 90 tablet 3 025 2024 Discontinued losartan (Cozaar) 100 MG tabletIndication s:Hypertensive kidney disease with stage 3a chronic kidney disease (CMS/HCC) ([facility]) take 1 tablet by mouth every morning 90 tablet 3 025 2024 Discontinued rosuvastatin (Crestor) 40 MG tabletIndication s:Mixed hyperlipidemia take 1 tablet by mouth once daily 90 tablet 3 025 2024 Discontinued Jardiance 10 MGIndications:Hy pertensive kidney disease with stage 3a chronic kidney disease (CMS/HCC) ([facility]) take 1 tablet by mouth once daily 90 tablet 3 025 2024 Discontinued Eliquis 5 MG tabletIndication s:Atrial fibrillation, unspecified type (CMS/HCC) ([facility]) take 1 tablet by mouth twice a day 180 tablet 3 025 2024 Discontinued(R eorder (will not trigger notification to Pharmacy)) levothyroxine (Synthroid, Levoxyl) 125 MCG tabletIndication s:Hypothyroidism , unspecified type take 1 tablet by mouth once daily AT LEAST 30 MINUTES PRIOR TO BREAKFAST/OTHER MEDS 90 tablet 3 025 2024 Discontinued omeprazole (PriLOSEC) [address] capsuleIndicatio ns:Gastroesophag eal reflux disease without esophagitis take 1 capsule by mouth twice a day 180 capsule 3 025 2024 Discontinued ezetimibe (Zetia) 10 MG tabletIndication s:Hyperlipidemia , unspecified hyperlipidemia type take 1 tablet by mouth every morning 90 tablet 3 025 2024 Discontinued meclizine (Antivert) 12.5 MG tabletIndication s:Vertigo TAKE 1 TABLET BY MOUTH ONCE DAILY IF NEEDED DIZZINESS 90 tablet 3 025 2024 Discontinued Active Problems Problem Noted Date Diagnosed Date Hx of post-traumatic headache 01/21/2025 Assessment & Plan (01/21/2025 8:16 AM EDT): History of posttraumatic headache now resolved. No concerning ongoing symptoms. No need for further evaluation at this time. Continue to monitor. Anemia 10/09/2024 Assessment & Plan (10/23/2024 8:25 AM EST): Stable hg 11.4 new mild anemia. Remains asymptomatic. Normal iron. B12 low... supplement and recheck 3 months. Assessment & Plan (10/09/2024 9:19 AM EST): New mild anemia Hg 11.3. Asymptomatic. Hx/o on iron supplement. Check CBC, iron, B12, folate, to further eval and proceed as indicated. Consider colonoscopy. 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 PTH elevated to 91 in 08/2023. Repeat q6-12 months. Orthostatic hypotension 04/12/2023 Assessment & Plan (06/18/2024 1:15 PM EDT): Dizziness and lightheadedness: - Likely related to orthostatic hypotension. Previous cardiology visit noted low blood pressure, leading to discontinuation of amlodipine. Current medications include Losartan and Metoprolol. Orthostatic hypotension confirmed by a 30-point increase in pulse rate from laying to standing. - Decrease Metoprolol from 75 mg to 50 mg. Monitor pulse and blood pressure at home. Follow-up in two weeks with nurses for blood pressure and pulse check, and another follow-up with me two weeks after that. - Risks and side effects: Potential for increased heart rate if Metoprolol is decreased. Monitor to ensure heart rate stays below 110 bpm, ideally in the 60- 90 bpm range. Assessment & Plan (05/14/2023 11:52 AM EDT): Stable. Provided education to continue use of compression stockings and remain well-hydrated. Continue to monitor. Assessment & Plan (04/12/2023 12:07 PM EDT): Persistent. Further discontinuing BP meds not really an option at this time given hypertensive on current regimen. Advised continuing w/ compression stockings and remaining well-hydrated. Unclear how else best to proceed. Pt not in acute distress today. Advised next available f/u w/ cardiology and strict return/ER precautions. Hyperlipidemia 01/04/2023 Assessment & Plan (12/27/2023 7:53 AM EDT): LDL 73 just above goal <70. Reviewed that simvastatin 80mg dosage typically not recommended, and advised switching to atorvastatin or rosuvastatin in hopes of increased LDL reduction. Pt expressed understanding and agreement. Does not recall ever being on atorva or rosuva in the past. Script sent. Continue to monitor. Labs again in ~3 months. Assessment & Plan (12/16/2023 8:29 AM EDT): Repeat monitoring labs. Ideally LDL goal <70. F/u with results and continue to monitor. Consider switch to atorva or rosuva if further LDL reduction needed. Assessment & Plan (08/15/2023 10:22 AM EST): Stable. Reviewed that ideally would get LDL<70 and offered to switch to atorvastatin or rosuvastatin but pt declined, prefers to continue current regimen for now. Assessment & Plan (01/04/2023 8:45 AM EDT): Repeat labs today for monitoring. Tolerating meds well with no adverse s/e. Arteriosclerosis of coronary artery 01/04/2023 Hypertensive kidney disease with stage 3a chronic kidney disease ([facility]/HCC) 01/04/2023 Assessment & Plan (10/09/2024 9:18 AM EST): Albumin/creatinine ratio has increased to 500 (was 275 in March 2024 after initiating Jardiance), otherwise stable CKD3a. Continue with current med regimen and re- check in 3 months. Assessment & Plan (04/02/2024 8:26 AM EDT): BP at goal <140/90 on current med regimen with increase amlodipine to 5mg, tolerating well with no side effects. Asymptomatic and clinically well-appearing. Continue current meds and will continue to monitor. CKD stable. No negative side effects from the Jardiance medication. Less protein is spilling into the urine from the kidneys. - Continue with the Jardiance medication to preserve kidney function. Repeat labs again 6 months before CPE. Assessment & Plan (01/30/2024 1:54 PM EDT): BP at goal <140/90 on current med regimen with increase amlodipine to 5mg, tolerating well with no side effects. Asymptomatic and clinically well-appearing. Continue current meds and will continue to monitor. CKD stable. Repeat labs previously placed to have done before next f/u visit end of March. Assessment & Plan (12/27/2023 7:51 AM EDT): Above goal <140/90. Reassuringly asymptomatic and clinically well-appearing. Shared decision to restart amlodipine at low-dose 2.5mg. Continue losartan 100mg and toprol 100mg. Return for nurse visit as planned on 01/21/24. If BP remains above 140/90 then increase amlodipine to 5mg at that time. Reviewed CKD3a with severely increased albuminuria, and indication to initiate SGLT2 inhibitor to help slow CKD progression. Reviewed s/e profile and adverse event risk including hypotension, dizziness, hypovolemia, genital yeast infections. Pt expressed understanding and agreement to start treatment. Script sent. Continue to monitor. Assessment & Plan (12/16/2023 8:33 AM EDT): Above goal <140/90. Reassuringly asymptomatic and clinically well-appearing. Shared decision to discontinue prazosin secondary to side effects, and increase losartan from 50 to [address] Kat notified via [employer]. Continue to monitor at home. Return in 6 weeks for nurse visit, if BP remains above goal less than 140/90 at that time then restart amlodipine at low-dose 2.5 mg. Reviewed mechanism of action and side effect profile. Well-tolerated in the past in 03/2023 discontinued due to hypotension. Patient to then return again for PCP follow-up 6 weeks after nurse visit or sooner if needed. CKD 3a stable with reassuring comprehensive baseline labs. Repeat today for monitoring. Assessment & Plan (08/15/2023 10:22 AM EST): BP above goal <130/80 though given age can be more flexible. Will maintain current regimen for now. Making initial dx/o CKD3A today given associated GFR in corresponding range >3 months. Reviewed together with pt who is in agreement to provide more comprehensive workup/monitoring labs today. F/u w/ results and continue to monitor. Assessment & Plan (01/04/2023 8:41 AM EDT): Stage unclear. Will check initial labs today and check more comprehensive CKD labs in future depending on stage. Gastroesophageal reflux disease without esophagi tis 01/04/2023 Overview (01/04/2023): Stable on omeprazole 40mg bid Assessment & Plan (04/02/2024 8:26 AM EDT): - Patient is on omeprazole, 40 mg, twice a day for the acid reflux. Patient reports occasional heartburn. - Consider decreasing the dose of omeprazole to once a day to see if symptoms remain gone. - DEXA ordered to screen osteoporosis. Assessment & Plan (01/04/2023 8:41 AM EDT): Refractory symptoms if decreases dose/frequency of PPI. Discussed risks of osteoporosis - order placed for scan. Pt declining GI referral for EGD consultation. Will continue to monitor. Vertigo 01/04/2023 Overview (01/04/2023): Stable on meclizine 12.5mg daily Assessment & Plan (01/04/2023 8:43 AM EDT): Clinically benefiting from current med regimen, taking as prescribed and tolerating well with no side effects. Continue as is and will continue to monitor. Insomnia 01/04/2023 Overview (01/04/2023): Stable on trazodone 50mg nightly Assessment & Plan (01/04/2023 8:39 AM EDT): Clinically benefiting from current med regimen, taking as prescribed and tolerating well with no side effects. Continue as is and will continue to monitor. Pulmonary nodules 10/23/2022 Overview (10/23/2022): 10/2022 showing scattered pulm nodules largest 4mm, repeat in 1 year. Assessment & Plan (04/02/2024 8:26 AM EDT): - Chest CAT scan in October of 2022 showed a couple of pulmonary nodules. - Patient has decided to defer the repeat CAT scan for now. Lumbago with sciatica 05/26/2021 Assessment & Plan (04/20/2024 2:54 PM EDT): Progressive chronic LBP with left-sided sciatica. Start with an x-ray of the spine. Consider physical therapy or referral to a sports medicine doctor or technical operations specialist depending on the x-ray results. Try lidocaine patches for pain management. Consider gabapentin or Duloxetine for pain management, with caution due to potential side effects and interactions. - Risks/Side effects: Gabapentin may increase dizziness. Duloxetine may increase serotonin levels when taken with Trazodone. Atrial fibrillation ([facility]) 06/11/2019 Overview (04/08/2023): On indefinite a/c with eliquis 5mg bid. Assessment & Plan (01/21/2025 8:24 AM EDT): Longstanding persistent A-fib followed by cardiology. Rate controlled and anticoagulated. Revisited risk/benefits of bleeding versus clot prevention on anticoagulation and shared decision to proceed with Eliquis 5 mg twice daily. 84F weighing 77.1kg and baseline serum Cr 1.1-1.2. HASBLED 2 points; 4.1% risk - of note 1 point is ASA use which is pending discussion as below with cardiology on whether still indicated. CHADSVASC 4 points; 4.8-6.7% risk. Did discuss whether concomitant aspirin use is actually indicated. Discussed how Eliquis and aspirin together significantly increases bleeding risk. No clear ongoing indication for the aspirin. Patient to further discuss with busperson at appointment next week on whether she can discontinue. Assessment & Plan (06/18/2024 1:14 PM EDT): Longstanding persistent. F/b cardiology. Rate-controlled and anticoagulated. Continue to monitor. Assessment & Plan (08/15/2023 10:20 AM EST): Longstanding persistent. F/b cardiology. Rate-controlled and anticoagulated. Asymptomatic and clinically well-appearing today. Continue to monitor. Assessment & Plan (04/12/2023 12:01 PM EDT): Pt remains in A-fib and symptomatic w/ dyspnea and dizziness/lightheadedness (though unclear if symptoms related to A-fib or not). Overall reassuring clinical presentation today. Continue current meds and continue to monitor. Assessment & Plan (01/04/2023 8:44 AM EDT): Clinically benefiting from current med regimen, taking as prescribed and tolerating well with no side effects. Continue as is and will continue to monitor. Will also f/u with cardiology to re-assess a/c indication. Rheumatoid arthritis ([facility]) 10/16/2017 Overview (01/04/2023): F/b rheumatology who rx enbrel and leflunomide Hypothyroidism 10/16/2017 Overview (01/04/2023): On levothyroxine 125mcg daily Assessment & Plan (04/02/2024 8:27 AM EDT): Stable. Repeat labs in 6 months before CPE. Assessment & Plan (12/16/2023 8:29 AM EDT): Recheck labs today. Last checked euthyroid in 12/2022. Continue current dose unless TSH no longer at goal. Assessment & Plan (01/04/2023 8:42 AM EDT): Recheck labs today. Continue current dose unless TSH no longer at goal. Hypertension 10/16/2017 Assessment & Plan (10/23/2024 8:25 AM EST): BP at goal <140/90 on current med regimen, tolerating well with no side effects. Asymptomatic and clinically well-appearing. Continue current meds and will continue to monitor. Assessment & Plan (10/09/2024 8:37 AM EST): BP continues to be variable. First reading today 143/78. Second reading 10 min later 119/67. Home recordings show early mornings tend to be high (systolic in the 200s). Systolic readings later in the day range from 140s to 160s. Previously tried amlodipine 5mg, but discontinued d/t increased dizziness. For now, will try starting amlodipine at a lower dose (2.5mg). Continue monitoring at home at least 2x/day. F/U in 2 weeks. Assessment & Plan (09/25/2024 8:35 AM EST): Above goal <140/90. Reassuringly asymptomatic and clinically well-appearing. For now we will continue metoprolol 75 mg, losartan 100 mg. Of note patient admittedly stressed with recent life stressors and BPs closer to or at goal at recent cardio visits. Will defer med changes for now and have patient resume home monitoring for and return in 2 weeks for reevaluation. Was on amlodipine previously but discontinued due to symptomatic hypotension. Assessment & Plan (07/20/2024 8:47 AM EST): Hypertension at goal less than 140/90 today with increase metoprolol to 75 mg. Continue as is and follow-up with cardiology this morning as planned. Assessment & Plan (05/14/2023 11:53 AM EDT): BP at goal <130/80 on current med regimen with addition of losartan 50mg. Clinically well-appearing today on presentation. Continue current meds and continue to monitor - pt has upcoming f/u planned w/ cardiology, and will return for PCP f/u in 6 weeks for CPE or sooner as needed. Assessment & Plan (04/12/2023 12:09 PM EDT): Above goal <130/80. Delicate balance of adjusting meds given orthostatic hypotension. Advised pt to call cardiology office and r/s missed appt from yesterday jasen. Will also have our team call and I sent a direct Cortext message to Dr. Kat. Assessment & Plan (01/04/2023 8:40 AM EDT): BP nearly at goal <130/80 on current med regimen, tolerating well with no side effects. Asymptomatic and clinically well-appearing. Continue current meds and will continue to monitor. Psoriasis 04/02/2012 Resolved Problems Problem Noted Date Diagnosed Date Resolved Date Dyspepsia 10/16/2017 01/04/2023 Encounters Date Type Department Care Team Description 05/25/[address] [phone] Arik Nj PA Atrial fibrillation, unspecified type ([facility]/HCC) 05/25/[address] [phone] Arik Nj PA 05/18/[address] [phone] Arik Nj PA Gastroesophageal reflux disease without esophagitis; Primary hypertension; Hypertensive kidney disease with stage 3a chronic kidney disease ([facility]); Hypothyroidism, unspecified type; Vertigo; Hyperlipidemia, unspecified hyperlipidemia type; Mixed hyperlipidemia; Insomnia, unspecified type 05/14/2025 10:20 AM EDT Office Visit [address] [phone] Arik Nj PA Chronic bilateral back pain, unspecified back location (Primary Dx); Encounter for immunization 05/07/2025 8:20 AM EDT Office Visit [address] [phone] Arik Nj PA Claustrophobia (Primary Dx); Chronic post-traumatic headache, not intractable 03/25/[address] [phone] Bcuk Flores MD Vertigo from Last 3 Months Immunizations Immunization Administration Dates Next Due Influenza High-dose Quadrivalent Preservative Fr ee 06/23/2020 Influenza Quadrivalent Adjuvanted 05/02/2022,06/2021 Influenza, High Dose Seasonal, Preservative Free 05/14/2025 Influenza, Unspecified 06/25/2017 Influenza, trivalent, adjuvanted 05/25/2019,090 03/2018 Pneumococcal Conjugate PCV 13 01/06/2015 Pneumococcal Polysaccharide PPSV23 03/06/2022, TD (adult), 2 Lf tetanus tox oid, preservative free, adsorbed 01/04/2021 Tdap 05/25/2020,11/09/2010 Zoster, Recombinant 09/04/2020,06/23/2020 Social History Tobacco Use Types Packs/Day Years Used Date Smoking Tobacco: Former Cigarettes 0.3 50 1 957 - 2007 Passive Smoke Exposure: Current Smokeless Tobacco: Never Tobacco Cessation:Counseling Given: Yes Alcohol Use Standard Drinks/Week Comments Not Currently [...] not to disclose 2022 1:11 PM EDT Last Filed Vital Signs Vital Sign Reading Time Taken Comments Blood Pressure 133/86 05/14/2025 10:25 AM EDT Pulse 96 05/14/2025 10:11 AM EDT Temperature 36.3 C (97.4 F) 01/21/2025 7:42 AM EDT Respiratory Rate 16 07/03/2024 9:37 AM EDT Oxygen Saturation 98% 05/14/2025 10:11 AM EDT Inhaled Oxygen Concentration - - Weight 77.1 kg (170 lb) 04/02/2024 7:50 AM EDT Height 162.6 cm (5' 4 ) 04/02/2024 7:50 AM EDT Body Mass Index 29.18 04/02/2024 7:50 AM EDT Plan of Treatment Upcoming Encounters Date Type Department Care Team (Late st Contact Info) Description 08/02/2025 7:40 AM EST Office Visit [facility] [address] [place] [phone] Arik Nj PA [address] [place] [address] Health Maintenance Due Date Last Done Comments Dental Prophylaxis 1940 Dental X-Ray: Bitewings 1941 RSV Patients and Patients Aged 60 years or older (1 - 1-dose 75+ series) 2016 Dental Oral Exam 10/09/2024 04/07/2024 COVID-19 Vaccine ( season) 2025 Alcohol/Substance Use Screening 01/21/2026 01/21/2025 Depression Screening 01/21/2026 01/21/2025, 01/30/20 SDOH Screening 01/21/2026 01/21/2025 Tobacco Screening 05/14/2026 05/14/2025 Dental X-Ray: Full Mouth 04/08/2027 04/07/2024 Lipid Panel 03/27/2029 03/27/2024, 12/01, 01/04/2023, Additional history exists DTaP/Tdap/Td Vaccines (4 - Td or Tdap) 01/04/2031 01/04/2021, 05/25/2020, 11/09/2010 Zoster Vaccines Completed 09/04/2020, 06/23/2020 Pneumococcal Vaccine: 50+ Years Completed 03/06/2022, 01/06/2015, 03/22/2011 Influenza Vaccine Completed 05/14/2025, , 04/25/2023, Additional history exists HIB Vaccines Aged Out No longer eligi ble based on patient's age to complete this topic HPV Vaccines Aged Out No longer eligi ble based on patient's age to complete this topic Hepatitis A Vaccines Aged Out No long er eligible based on patient's age to complete this topic Hepatitis B Vaccines Aged Out No long er eligible based on patient's age to complete this topic IPV Vaccines Aged Out No longer eligi ble based on patient's age to complete this topic Meningococcal B Vaccine Aged Out No l onger eligible based on patient's age to complete this topic Meningococcal Vaccine Aged Out No landy bhavana eligible based on patient's age to complete this topic RSV under 20 months Aged Out No longe r eligible based on patient's age to complete this topic Rotavirus Vaccines Aged Out No longer eligible based on patient's age to complete this topic Procedures Procedure Name Priority Date/Time Associated Diagnosis Comments PANORAMIC RADIOGRAPHIC IMAGE Routine 04/07/2024 7:45 AM EDT COMPREHENSIVE ORAL EVALUATION - NEW OR ESTABLISHED PATIENT Routine 04/07/2024 7:45 AM EDT LIPID PANEL WITH REFLEX TO DIRECT LDL Routine 03/27/2024 8:14 AM EDT Mixed hyperlipidemia from Last 3 Months or Most Recently Relevant to Health Maintenance Results * (ABNORMAL) Lipid Panel with Reflex to Direct LDL (03/27/2024 8:14 AM EDT) Cholesterol, Total 132 <200 mg/dL [employer] [place] [employer] HDL Cholesterol 60 > OR = 50 mg/dL [employer] [place] [employer] Triglycerides 152(H) <150 mg/dL [employer] [place] [employer] LDL Cholesterol 49 mg/dL [facility] [employer] [place] [employer] Comment: Reference range: <100 Desirable range <100 mg/dL for primary prevention; <70 mg/dL for patients with CHD or diabetic patients with > or = 2 CHD risk factors. LDL-C is now calculated using the Kari calculation, which is a validated novel method providing better accuracy than the Friedewald equation in the estimation of LDL-C. Amanuel SS et al. CANDELARIO. 2013;310(19): 3663-1898 (http://education.ProspectNow/faq/VSY997) Chol/HDLC Ratio 2.2 <5.0 (calc) [employer] [place] [employer] Non-HDL Cholesterol 72 <130 mg/dL [employer] [place] [employer] Comment: For patients with diabetes plus 1 major ASCVD risk factor, treating to a non-HDL-C goal of <100 mg/dL (LDL-C of <70 mg/dL) is considered a therapeutic option. Blood 03/27/2024 8:14 AM EDT 03/27/2024 8:15 AM EDT Narrative [facility] - 03/28/2024 5:54 PM EDT FASTING:NO FASTING: NO us Arik [facility] BLOOD ORDERABLES Final Resul t [facility] [address], [place] [address] [employer] [place] [employer] [address] [place] [address] from Last 3 Months or Most Recently Relevant to Health Maintenance Insurance [id number] MEDICARE ADVANTAGE HSN FULL [facility] STANDARD DENTAL - [place] PPO DENTAL - HSN FULL (MEDICAID) TRAVEL[employer] INSURANCE Care Teams Casing Trimmer Relationship Specialty Start Date End Date Arik Nj PA [address] [place] [address] PCP - General Family Medicine 01/04/23
--- OUTSIDE RECORDS SUMMARY | 2025-06-16 19:06 | XMS_ITS | Encounter Summary ---
Author Organization [facility] Address [address] [facility] [address] [place] [address] Phone Care Team Providers Care Oxygen Therapist Name Role Phone Unknown, Unknown Primary Care Provider Jeannette Moffett MD Primary Care Provider [phone] Arik Nj Primary Care Provider [phone] Encounter Details Date Type Department Care Team (Latest Contact Info) Description 07/24/2019 Ancillary Orders [facility] [address] [place] [address] [place] [address] Rivera Velazquez MD [address] [place] [address] [email or web address] Atrial fibrillation, persistent Social History Tobacco Use Types Packs/Day Years Used Date Smoking Tobacco: Never Assessed Comments Unknown Sex and Gender Information Value Date Recorded Sex Assigned at Not on file Legal Sex Female 3:49 PM EDT Gender Identity Not on file Sexual Orientation Not on file documented as of this encounter Plan of Treatment Not on file documented as of this encounter Results * Holter Monitor 48 Hours (07/24/2019 11:24 AM EST) Anatomical Region Laterality Modality Heart Other Narrative 07/27/2019 12:52 PM EST Holter monitor report Indication atrial fibrillation Findings: The underlying rhythm is atrial fibrillation with an average heart rate of 104 bpm, minimal heart rate 52 bpm, maximal heart rate 192 bpm. There are rare isolated PVCs. Other than the atrial fibrillation, no other abnormal arrhythmias. The patient is tachycardic 64% of the time. Conclusion: Chronic atrial fibrillation with an average heart rate of 104 bpm. The patient is tachycardic 64% of the time. Procedure Note Jamey Hill MD - 07/27/2019 Holter monitor report Indication atrial fibrillation Findings: The underlying rhythm is atrial fibrillation with an average heart rate of104 bpm, minimal heart rate 52 bpm, maximal heart rate 192 bpm. There are rare isolated PVCs. Other than the atrial fibrillation, no other abnormal arrhythmias. The patient is tachycardic 64% of the time. Conclusion: Chronic atrial fibrillation with an average heart rate of 104 bpm. Thepatient is tachycardic 64% of the time. Rivera Velazquez MD [facility] Final Result documented in this encounter Visit Diagnoses Diagnosis Atrial fibrillation, persistent documented in this encounter Care Teams Oxygen Therapist Relationship Specialty Start Date End Date Unknown, Unknown, MD PCP - General 07/27/19 09/13/22 Jeannette Clinton MD [address] [place] [address] [email or web address] PCP - General Family Medicine 09/14/22 4 Arik Nj PA [address] [place] [address] PCP - General 06/05/24 documented as of this encounter Additional Source Comments The information contained in this document represents components of the legal health record. It is not the complete legal health record.[facility]
--- OUTSIDE RECORDS SUMMARY | 2025-06-16 19:06 | XMS_ITS | Encounter Summary ---
Author Organization [facility] Address [address] [place] [address] [place] [address] Phone Care Team Providers Care Assembler Insulator Name Role Phone Unknown, Unknown Primary Care Provider Jeannette Moffett MD Primary Care Provider [phone] Arik Nj Primary Care Provider [phone] Encounter Details Date Type Department Care Team (Late st Contact Info) Description 04/05/2020 Ancillary [facility] [address] [facility] 3rd Floor, [address] [place] [address] Rivera Velazquez MD [address] [place] [address] [email or web address] Social History Tobacco Use Types Packs/Day Years [...] on filedocumented in this encounter Care Teams Assembler Insulator Relationship Specialty Start Date End Date Unknown, Unknown, PCP - General 07/27/19 09/13/22 Jeannette Clinton MD [address] [place] [address] [email or web address] PCP - General Family Medicine 09/14/22 4 Arik Nj PA [address] [place] [address] PCP - General 06/05/24 documented as of this encounter Additional Source Comments The information contained in this document represents components of the legal health record. It is not the complete legal health record.[facility]
--- OUTSIDE RECORDS SUMMARY | 2025-06-16 19:06 | XMS_ITS | Encounter Summary ---
Author Organization [employer] Address [address] [facility] 7 [place] [address] Care Team Providers Care Undertaker Assistant Name Role Phone Arik Nj Primary Care Provider [phone] Encounter Details Date Type Department Care Team (Late st Contact Info) Description 06/20/2023 Abstract [facility] [address] [place] [phone] Arik Nj PA [address] [place] [address] Social History Tobacco Use Types Packs/Day Years Used Date Smoking Tobacco: Former Cigarettes 0.3 50 1 257 - 2007 Passive Smoke Exposure: Current Smokeless Tobacco: Never Alcohol Use Standard Drinks/Week Comments Not Currently 0 (1 standard drink = 0.6 oz pur e alcohol) Housing Stability Answer Date Recorded What is your housing situation today? I have huey stearns 06/20/[address] you li ve. Do you have problems with any of the following? None of the above 06/20/2023 Food Insecurity Answer Date Recorded Within the past 12 months, y ou worried that your food would run out before you got money to buy more: Never True 06/20/2023 Within the past 12 months,th e food you bought just didn't last and you didn't have enough money to get more: Never True Transportation Answer Date Recorded In the past 12 months, has l ack of transportation kept you from medical appts, meetings, work or from getting things needed for daily living? No 06/20/2023 Utilities Answer Date Recorded In the past 12 months, has t he electric, gas, oil or water company threatened to shut off services in your home? No 06/20/2023 Depression Answer Date Recorded Patient Health Questionnaire-2 Score 0 01/04/2023 Comments No Sex and Gender Information Value [...] Description 08/02/2025 7:40 AM EST Office Visit [facility] [address] [place] [address] Arik Nj PA [address] [place] [address] documented as of this encounter Visit Diagnoses Not on filedocumented in this encounter Care Teams Undertaker Assistant Relationship Specialty Start Date End Date Arik Nj PA [address] [place] [address] PCP - General Family Medicine 01/04/23 documented as of this encounter
--- OUTSIDE RECORDS SUMMARY | 2025-06-16 19:06 | XMS_ITS | Encounter Summary ---
Author Organization [employer] Address [address] [facility] 7 [place] [address] Care Team Providers Care Whistle Punk Name Role Phone Arik jN Primary Care Provider [phone] Reason for Visit * Reason Comments Med Change Request Encounter Details Date Type Department Care Team ([facility] Contact Info) Description 12/28/2023 [facility] [address] [place] [phone] Arik Nj PA [address] [place] [address] Hypertensive kidney disease with stage 3a chronic kidney disease (CMS/HCC) Social History Tobacco Use Types Packs/Day Years [...] more drinks on one occasion? 0 12/16/2023 Housing Stability Answer Date Recorded What is your housing situation today? I have hueylatosha stearns 06/20/[address] you [...] things needed for daily living? No 06/20/2023 Intimate Partner Violence Answer Date R ecorded [...] the past 12 months, has t he [employer], gas, oil or water company threatened to [...] Description 08/02/2025 7:40 AM EST Office Visit [facility] [address] [place] [address] Arik Nj PA [address] [place] [address] documented as of this encounter Visit Diagnoses Diagnosis Hypertensive kidney disease with stage 3a chronic kidney disease (CMS/HCC) (HCC) documented in this encounter Care Teams Whistle Punk Relationship Specialty Start Date End Date Arik Nj PA [address] [place] [address] PCP - General Family Medicine 01/04/23 documented as of this encounter
--- OUTSIDE RECORDS SUMMARY | 2025-06-16 19:06 | XMS_ITS | Encounter Summary ---
Author Organization [employer] Address [address] [facility] 7 [place] [address] Care Team Providers Care Bow Maker Machine Tender Name Role Phone Arik Nj Primary Care Provider [phone] Encounter Details Date Type Department Care Team (Late st Contact Info) Description 06/20/2023 Abstract [facility] [address] [place] [phone] Arik Nj PA [address] [place] [address] Social History Tobacco Use Types Packs/Day Years Used Date Smoking Tobacco: Former Cigarettes 0.3 50 1 207 - 2007 Passive Smoke Exposure: Current Smokeless [...] Description 08/02/2025 7:40 AM EST Office Visit [facility] [address] [place] [address] Arik Nj PA [address] [place] [address] documented as of this encounter Visit Diagnoses Not on filedocumented in this encounter Care Teams Bow Maker Machine Tender Relationship Specialty Start Date End Date Arik Nj PA [address] [place] [address] PCP - General Family Medicine 01/04/23 documented as of this encounter
--- OUTSIDE RECORDS SUMMARY | 2025-06-16 19:06 | XMS_ITS | Encounter Summary ---
Author Organization [facility] Address [address] [facility] [address] [place] [address] Phone Care Team Providers Care Broomcorn Thresher Name Role Phone Unknown, Unknown Primary Care Provider Jeannette Moffett MD Primary Care Provider [phone] Arik Nj Primary Care Provider [phone] Encounter Details Date Type Department Care Team (Late st Contact Info) Description 07/19/2022 Procedure Pass [facility], Ct Scan - [address] [address] Social History Tobacco Use Types Packs/Day Years [...] on filedocumented in this encounter Care Teams Broomcorn Thresher Relationship Specialty Start Date End Date Unknown, Unknown, PCP - General 07/27/19 09/13/22 Jeannette Clinton MD [address] [place] [address] [email or web address] PCP - General Family Medicine 09/14/22 4 Arik Nj PA [address] [place] [address] PCP - General 06/05/24 documented as of this encounter Additional Source Comments The information contained in this document represents components of the legal health record. It is not the complete legal health record.[facility]
--- OUTSIDE RECORDS SUMMARY | 2025-06-16 19:06 | XMS_ITS | Encounter Summary ---
Author Organization [employer] Address [address] [facility] 7 [place] [address] Care Team Providers Care Painting Worker Name Role Phone Arik Nj Primary Care Provider [phone] Encounter Details Date Type Department Care Team (Late st Contact Info) Description 07/02/2023 Abstract [facility] [address] [place] [phone] Arik jN PA [address] [place] [address] Social History Tobacco Use Types Packs/Day Years Used Date Smoking Tobacco: Former Cigarettes 0.3 50 1 587 - 2007 Passive Smoke Exposure: Current Smokeless [...] 08/02/2025 7:40 AM EST Office Visit [facility] [address] [place] [address] Arik Nj PA [address] [place] [address] documented as of this encounter Visit Diagnoses Not on filedocumented in this encounter Care Teams Painting Worker Relationship Specialty Start Date End Date Arik Nj PA [address] [place] [address] PCP - General Family Medicine 01/04/23 documented as of this encounter
--- OUTSIDE RECORDS SUMMARY | 2025-06-16 19:06 | XMS_ITS | Encounter Summary ---
Author Organization [facility] Address [address] [facility] [address] [place] [address] Phone Care Team Providers Care Senior Accounting Analyst Name Role Phone Unknown, Unknown Primary Care Provider Jeannette Moffett MD Primary Care Provider [phone] Arik Nj Primary Care Provider [phone] Reason for Referral * MRI/CAT Scan - Closed Specialty Diagnoses / Procedures Referred By Contjohnny t Referred To Contact Radiology Diagnoses Other chest pain Procedures CT Chest Nicolle Boss MD Phone: tel: fax: Referral ID Status Reason Start Date Expiration Date Visits Re quested Visits Authorized [id number] Closed 07/19/2022 07/19/2023 1 1 Encounter Details Date Type Department Care Team (Late st Contact Info) Description 07/19/2022 Transcribe Orders Virtual Department [address] [place] [address] Nicolle Boss MD [address] [place] [address] Other chest pain (Primary Dx) Social History Tobacco Use Types [...] documented as of this encounter Results * CT CHEST WITH CONTRAST (10/08/2022 2:21 PM EST) Anatomical Region Laterality Modality Chest Computed Tomogra phy 10/09/2022 8:11 AM EST Impressions 10/09/2022 10:05 AM EST 1. No acute abnormality in the chest. 2. Scattered lung nodules measuring up to [address] follow-up at 12 month can be performed in a high-risk patient. Narrative 10/09/2022 10:[address] CHEST WITH CONTRAST TECHNIQUE: Multidetector CT of the chest was performed with intravenous contrast using tailored dose modulation techniques. COMPARISON: None FINDINGS: Devices/Tubes/Lines: None. Lungs: Scattered lung nodules including a 4 mm right lower lobe nodule (5:174) and 2 mm left upper lobe nodule (5:90). Pleura: No pleural effusion or pneumothorax. Mediastinum: No pericardial effusion. Severe amount of coronary calcifications. Lymph Nodes: No enlarged supraclavicular, axillary, mediastinal, or hilar lymph nodes. Upper Abdomen: Dense calcification in the right hepatic lobe. Status post cholecystectomy. Partially visualized cystic lesion in the left kidney. Chest Wall: No chest wall mass. Bones: No suspicious lytic or blastic lesions. There are degenerative changes of the visualized spine. Procedure Note Calvin Castellon MD - 10/09/2022 CT CHEST WITH CONTRAST TECHNIQUE: Multidetector CT of the chest was performed with intravenouscontrast using tailored dose modulation techniques. COMPARISON: None FINDINGS: Devices/Tubes/Lines: None. Lungs: Scattered lung nodules including a 4 mm right lower lobe nodule(5:174) and 2 mm left upper lobe nodule (5:90). Pleura: No pleural effusion or pneumothorax. Mediastinum: No pericardial effusion. Severe amount of coronarycalcifications. Lymph Nodes: No enlarged supraclavicular, axillary, mediastinal, or hilarlymph nodes. Upper Abdomen: Dense calcification in the right hepatic lobe. Status postcholecystectomy. Partially visualized cystic lesion in the left kidney. Chest Wall: No chest wall mass. Bones: No suspicious lytic or blastic lesions. There are degenerativechanges of the visualized spine. IMPRESSION: 1. No acute abnormality in the chest. 2. Scattered lung nodules measuring up to [address] follow-up at 12month can be performed in a high-risk patient. Nicolle Boss MD IMG CT CHEST Final R esult documented in this encounter Visit Diagnoses Diagnosis Other chest pain- Primary Other chest pain documented in this encounter Care Teams Senior Accounting Analyst Relationship Specialty Start Date End Date Unknown, Unknown, MD PCP - General 07/27/19 09/13/22 Jeannette Clinton MD [address] [place] [address] [email or web address] PCP - General Family Medicine 09/14/22 Arik Serrano PA [address] [place] [address] PCP - General 06/05/24 documented as of this encounter Additional Source Comments The information contained in this document represents components of the legal health record. It is not the complete legal health record.[facility]
--- OUTSIDE RECORDS SUMMARY | 2025-06-16 19:06 | XMS_ITS | Clinical Summary ---
Author Organization [facility] Address [facility] [place] [address] Care Team Providers Care Agent Ticketing Gate Name Role Phone Valente Ligia Paige APRN Primary Care Provider Allergies Active Allergy Reactions Criticality Noted Date Comments Adhesive Tape Other (See Comments) Medium Skin break down Codeine Sulfate Hives Medium Hives Gloves, Latex Dermatitis Medium Swelling, used gloves and had eye swelling Hydrocodone Hives Medium 02/15/2016 Oxycodone Hives Medium 02/15/2016 Penicillins Hives Medium Hives Propoxyphene Hcl Hives Medium Hives Medications multivitamin (DAILY MULTI-VITAMIN) tablet 1 Active Calcium Carbonate-Anayeli min D3 (CALCIUM 600 WITH VITAMIN D3) 600 mg(1,500mg) -200 unit Tab 1 Tablet(s), PO, Three times daily 1 Active omeprazole (PRILOSEC) 40 mg capsule 1 Active simvastatin (ZOCOR) 40 mg tablet 1 Active estrogens, conjugated, (PREMARIN) 0.3 mg tablet Take 0.3 mg by mouth daily. Active ECONAZOLE NITRATE (SPECTAZOLE TOP) Apply topically as needed. Active metoprolol succinate (TOPROL XL) 100 mg XL tablet Take 100 mg by mouth daily. Active desonide (DESOWEN) 0.05 % creamIndicatio ns:Psoriasis Twice daily for psoriasis in sensitive areas 30 g 1 2 Active Additional Information Patient taking differently: DAILY PRN, Twice daily for psoriasis in sensitive areas, Reported on 01/11/2017 ZETIA 10 mg Tablet Take 10 mg by mouth daily. 5 Active b complex vitamins Capsule Take 1 capsule by mouth daily. Active ferrous sulfate 325 mg (65 mg iron) Tablet Take 325 mg by mouth 2 times daily. Active vitamin E 1,000 unit Capsule Take 1,000 Units by mouth daily. Active diclofenac (VOLTAREN) 1 % Gel Apply topically 4 times daily as needed. Active lisinopril (PRINIVIL;ZEST RIL) 40 mg Tablet Take 40 mg by mouth daily. Active amLODIPine (NORVASC) 10 mg Tablet Take 10 mg by mouth daily. Active acetaminophen (TYLENOL) 500 mg Tablet Take 2 tablets by mouth every 6 hours as needed for Pain (for MODERATE pain (4-6)). 30 tablet 1 6 Active meclizine (ANTIVERT) 25 mg Tablet Take 1 tablet by mouth 3 times daily as needed for Dizziness. 90 tablet 6 Active Additional Information Patient not taking.Reported on 10/30/2017 clobetasol (TEMOVATE) 0.05 % OintmentIndica tions:Psoriasi s Apply to hands, elbows, and feet twice daily on weekends as needed for psoriasis 60 g 3 6 Active clonazePAM (KLONOPIN) 0.5 mg Tablet nightly as needed. 7 Active aspirin 81 mg Tablet, Delayed Release (E.C.) Take 81 mg by mouth daily. Active etanercept (ENBREL SURECLICK) Pen Injector Inject 50 mg subcutaneously once a week. 12 Syringe 3 7 Active HYDROcodone-ac etaminophen (NORCO) 5-325 mg Tablet take 1 tablet by mouth if needed at bedtime 0 7 Active levothyroxine (SYNTHROID) 112 mcg Tablet daily. 7 Active traMADol (ULTRAM) 50 mg Tablet take 1 tablet by mouth every 6 hours if needed 0 7 Active triamcinolone (KENALOG) 0.1 % Cream Apply topically 2 times daily. Apply 1-2 times a day for psoriasis , wean off as areas clear. 454 g 8 Active Active Problems Problem Noted Date Diagnosed Date Acute post-traumatic headache, not intractable 1 09/08/2015 Photosensitivity 07/09/2016 TBI (traumatic brain injury) 02/15/2016 Trauma 01/21/2016 Psoriasis 04/02/2012 High risk medication use 03/06/2012 Resolved Problems Problem Noted Date Diagnosed Date Resolved Date Psoriasis doing well on methotrexate therapy. 01/26/20 11 04/02/2012 Social History Tobacco Use Types Packs/Day Years Used Date Smoking Tobacco: Former Cigarettes Smokeless Tobacco: Never Comments:quit 2011 Alcohol Use Standard Drinks/Week Comments No 0 (1 standard drink = 0.6 oz pur e alcohol) Comments Unknown Sex and Gender Information Value Date Recorded Sex Assigned at Not on file Legal Sex Female 6:18 AM EST Gender Identity Not on file Sexual Orientation Not on file Last Filed Vital Signs Vital Sign Reading Time Taken Comments Blood Pressure 145/84 10/30/2017 10:48 AM EST Pulse 60 10/30/2017 10:48 AM EST Temperature 36.4 C (97.6 F) 10/30/2017 10:48 AM EST Respiratory Rate 18 03/07/2017 11:54 AM EDT Oxygen Saturation 100% 10/30/2017 10:48 AM EST Inhaled Oxygen Concentration - - Weight 78.5 kg (173 lb) 03/07/2017 11:54 AM EDT Height 165.1 cm (5' 5 ) 03/07/2017 11:54 AM EDT Body Mass Index 28.79 03/07/2017 11:54 AM EDT Plan of Treatment Health Maintenance Due Date Last Done Comments CT Colonography 1941 FIT DNA 1941 FIT 1941 Sigmoidoscopy (10 year) with FIT yearly 1941 Sigmoidoscopy 1941 Tetanus/Diphtheria/Pertussis Vaccines (1 - Tdap) 1960 Pneumoccocal Vaccine: 50+ (1 of 1 - PCV) 1991 Zoster vaccine (1 of 2) 1991 Bone Density Scan 2006 Colonoscopy 05/10/2014 05/10/2009 (See prior EHR) Colorectal Cancer Screening 05/10/2014 RSV Vaccine (1 - 1-dose 75+ series) 2016 Covid-19 Vaccine (1 - season) 2025 Influenza (Flu) vaccine (1 o f 1 - Influenza standard series) 05/03/2025 Insurance [id number] (Home) [address] [facility] [address] [place] [id number] [place] Advance Directives Documents on File Type Date Recorded 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
--- OUTSIDE RECORDS SUMMARY | 2025-06-16 19:06 | XMS_ITS | Encounter Summary ---
Author Organization [facility] Address [address] [place] [address] [place] [id number] Phone Care Team Providers Care Machine Sorter Name Role Phone Unknown, Unknown Primary Care Provider Jeannette Moffett MD Primary Care Provider [phone] Arik Nj Primary Care Provider [phone] Encounter Details Date Type Department Care Team (Late st Contact Info) Description 07/24/2019 Ancillary [facility] [address] [facility] [address]rd Floor, [address] [place] [address] Rivera Velazquez MD [address] [place] [address] [email or web address] Social History Tobacco Use Types Packs/Day Years [...] on filedocumented in this encounter Care Teams Machine Sorter Relationship Specialty Start Date End Date Unknown, Unknown, PCP - General 07/27/19 09/13/22 Jeannette Clinton MD [address] [place] [address] [email or web address] PCP - General Family Medicine 09/14/22 4 Arik Nj PA [address] [place] [id number] PCP - General 06/05/24 documented as of this encounter Additional Source Comments The information contained in this document represents components of the legal health record. It is not the complete legal health record.[facility]
--- OUTSIDE RECORDS SUMMARY | 2025-06-16 19:06 | XMS_ITS | Encounter Summary ---
Author Organization [facility] Address [address] [facility] [address] [place] [phone] Phone Care Team Providers Care Detention Officer Name Role Phone Unknown, Unknown Primary Care Provider Jeannette Moffett MD Primary Care Provider [phone] Arik Nj Primary Care Provider [phone] Encounter Details Date Type Department Care Team (Latest Contact Info) Description 04/05/2020 Ancillary Orders [facility] [address] [place] [address] [place] [address] Rivera Velazquez MD [address] [place] [phone] [email or web address] Atrial fibrillation, unspecified type Social History Tobacco Use Types Packs/Day Years [...] encounter Results * Holter Monitor 48 Hours (04/05/2020 2:32 PM EDT) Anatomical Region Laterality Modality Heart Other Narrative 04/05/2020 2:51 PM EDT Holter monitor report Indication atrial fibrillation Findings: The underlying rhythm is a sinus rhythm with an average heart rate 55 bpm, minimal heart rate 45 bpm, maximal heart rate 115 bpm. There are very rare isolated PVCs. There are some but rare premature atrial contractions. Most of these are isolated but there are a few atrial couplets as well as short runs of atrial tachycardia the longest being 12 beats at 111 bpm. Her symptoms did not clearly correlate with any of these abnormalities. Conclusion: No evidence of atrial fibrillation There were some premature atrial contractions and short runs of atrial tachycardia. Symptoms did not clearly correlate with any abnormalities. Procedure Note Jamey Hill MD - 04/05/2020 Holter monitor report Indication atrial fibrillation Findings: The underlying rhythm is a sinus rhythm with an average heart rate 55 bpm,minimal heart rate 45 bpm, maximal heart rate 115 bpm. There are very rare isolated PVCs. There are some but rare premature atrial contractions. Most of these areisolated but there are a few atrial couplets as well as short runs ofatrial tachycardia the longest being 12 beats at 111 bpm. Her symptomsdid not clearly correlate with any of these abnormalities. Conclusion: No evidence of atrial fibrillation There were some premature atrial contractions and short runs of atrialtachycardia. Symptoms did not clearly correlate with any abnormalities. Rivera Velazquez MD [facility] Final Result documented in this encounter Visit Diagnoses Diagnosis Atrial fibrillation, unspecified type Atrial fibrillation, unspecified type documented in this encounter Care Teams Detention Officer Relationship Specialty Start Date End Date Unknown, Unknown, MD PCP - General 07/27/19 09/13/22 Jeannette Clinton MD [address] [place] [address] [email or web address] PCP - General Family Medicine 09/14/22 4 Arik Nj PA [address] [place] [address] PCP - General 06/05/24 documented as of this encounter Additional Source Comments The information contained in this document represents components of the legal health record. It is not the complete legal health record.[facility]
== END 2025-06-16 16:16 | disposition home or self-care (01) ==
LOC: HO.RHES 15:47
PROVIDERS: Visit Provider Student in an Organized Health Care Education/Training Program
DX: L40.50 Arthropathic psoriasis, unspecified (principal); M15.9 Polyosteoarthritis, unspecified; Z13.820 Encounter for screening for osteoporosis; Z51.81 Encounter for therapeutic drug level monitoring; Z79.620 Long term (current) use of immunosuppressive biologic; Z79.69 Long term (current) use of other immunomodulators and immunosuppressants
CPT/HCPCS: 99214